=== PATIENT | male | born 1980 | race African-American/Black ===

== ENCOUNTER 2016-06-18 09:38 | Emergency (ER) | payer SELFPAY ==
[2016-06-18 09:59] VITALS: BP 151/89; PULSE 81; TEMP 98.2; BMI 29.0
--- NOTE | 2016-06-18 11:24 | PDOC ---
History of Present Illness - General Chief Complaint: Sore Throat Stated Complaint: THROAT PAIN Time Seen by Provider: 06/18/16 10:14 - History of Present Illness Initial Comments: 06/18/16 11:20 CHIEF COMPLAINT: HISTORY OF PRESENT ILLNESS: 36 yo M with no PMH presents to [facility] with sore throat x 2 days. Denies fever, chills, nausea, vomiting, diarrhea. Reports "I felt like I had the flu last week, I had a stuffy nose, and runny nose, and my body was tired." No recent travel or sick contacts. PAST MEDICAL HISTORY: Denies past medical history FAMILY HISTORY: Denies SOCIAL HISTORY: Denies tobacco, alcohol, illicit drug use. SURGICAL HISTORY: Denies ALLERGIES: No known drug allergies REVIEW OF SYSTEMS General/Constitutional: Denies fever or chills. Denies weakness, weight change. HEENT: Denies change in vision. Denies ear pain or discharge. Denies sore throat. Cardiovascular: Denies chest pain or shortness of breath. Respiratory: Denies cough, wheezing, or hemoptysis. Gastrointestinal: Denies nausea, vomiting, diarrhea or constipation. Denies rectal bleeding. Genitourinary: Denies dysuria, frequency, or change in urination. Musculoskeletal: Denies joint or muscle swelling or pain. Denies neck or back pain. Skin and breasts: Denies rash or easy bruising. PHYSICAL EXAM General Appearance: Well-appearing, appropriately dressed. No apparent distress , no intoxication. HEENT: Congestion, rhinorrhea, post nasal drip. No exudate or swelling to tonsils b/l. EOMI, PERRLA, normal voice, TMs normal, pharynx normal. No conjunctival pallor. No photophobia, scleral icterus. Respiratory/Chest: Lungs CTAB. Cardiovascular: RRR. S1, S2. Integumentary: Appropriate color, dry, warm. No cyanosis, erythema, jaundice or rash Neurologic: Fully oriented, alert. Appropriate mood/affect. Motor strength 5/ 5. No appreciable EOM palsy, facial droop or sensory deficit. Past History - Past Medical History Allergies/Adverse Reactions: Allergies Allergy/AdvReac Type Severity Reaction Status Date / Time Penicillins Allergy Verified 06/18/16 09:55 Home Medications: Ambulatory Orders Loratadine [Claritin] 10 mg PO DAILY #30 tablet 06/18/16 Pseudoephedrine HCl [Sudafed 12 Hour] 120 mg PO BID PRN #20 tablet.er 06/18/16 Cardiac Disorders: Yes (ANGINA,IRREGULAR HEART BEAT) - Psycho/Social/Smoking Cessation Hx Suicidal Ideation: No Smoking History: Current every day smoker Have you smoked in the past 12 months: Yes Number of Cigarettes Smoked Daily: 6 Information on smoking cessation initiated: No *Physical Exam - Vital Signs Last Vital Signs Temp Pulse Resp BP Pulse Ox 98.2 F 81 19 151/89 98 06/18/16 09:56 06/18/16 09:56 06/18/16 09:56 06/18/16 09:56 06/18/16 09:56 ED Treatment Course - ADDITIONAL ORDERS Additional order review: 06/18/16 10:48 Group A Strep Rapid Antigen - Final Throat *DC/Admit/Observation/Transfer Diagnosis at time of Disposition: Allergic rhinitis Qualifiers: Allergic rhinitis trigger: unspecified Allergic rhinitis seasonality: seasonal Qualified Code(s): J30.2 - Other seasonal allergic rhinitis - Discharge Dispostion Disposition: HOME Condition at time of disposition: Stable Admit: No - Prescriptions Prescriptions: Loratadine [Claritin] 10 mg PO DAILY #30 tablet Pseudoephedrine HCl [Sudafed 12 Hour] 120 mg PO BID PRN #20 tablet.er PRN Reason: congestion - Patient Instructions Printed Discharge Instructions: DI for Allergic Rhinitis Additional Instructions: Please take medications as prescribed. If symptoms persist past 1 week, please follow up with your primary care doctor. If you experience any fever, chills, nausea, vomiting, diarrhea, shortness of breath, chest pain, or any new or worsening symptoms, please return to the ER.
== END 2016-06-18 11:30 | disposition home or self-care (01) ==
LOC: JERFT 09:38
DX: J30.2 Other seasonal allergic rhinitis (principal); I20.9 Angina pectoris, unspecified
CPT/HCPCS: 87070; 87430; 99281-25

== ENCOUNTER 2017-04-03 08:29 | Emergency (ER) | payer SELFPAY ==
[2017-04-03 08:45] VITALS: BP 159/93; PULSE 89; TEMP 97.7; BMI 21.0
--- NOTE | 2017-04-03 09:15 | PDOC ---
History of Present Illness - General Chief Complaint: Chest Pain Stated Complaint: CHEST DISCOMFORT Time Seen by Provider: 04/03/17 09:13 Past History - Past Medical History Allergies/Adverse Reactions: Allergies Allergy/AdvReac Type Severity Reaction Status Date / Time Penicillins Allergy Verified 04/03/17 08:39 Home Medications: Ambulatory Orders Ibuprofen 800 mg PO TID #30 tablet 04/03/17 Cardiac Disorders: Yes (ANGINA,IRREGULAR HEART BEAT) COPD: No - Suicide/Smoking/Psychosocial Hx Smoking History: Current some day smoker Have you smoked in the past 12 months: Yes Number of Cigarettes Smoked Daily: 6 Information on smoking cessation initiated: No Drug/Substance Use Hx: Yes ([place]) Substance Use Type: Marijuana *Physical Exam - Vital Signs Last Vital Signs Temp Pulse Resp BP Pulse Ox 97.7 F 89 17 159/93 98 04/03/17 08:39 04/03/17 08:39 04/03/17 08:39 04/03/17 08:39 04/03/17 08:39 Medical Decision Making - Medical Decision Making 04/03/17 09:15 EKG from Triage: NRS, rate 86 BPM. Normal axis, normal intervals, no acute ST-T wave changes. Interpretation: Normal EKG *DC/Admit/Observation/Transfer Diagnosis at time of Disposition: Atypical chest pain - Discharge Dispostion Disposition: HOME Condition at time of disposition: Stable Admit: No - Referrals Referrals: Jerry Doherty MD [Staff Physician] - Beny Flores MD [Staff Physician] - - Patient Instructions Printed Discharge Instructions: DI for Atypical Chest Pain Additional Instructions: You came in for chest pain today. Your EKG was normal. Please take Motrin 800 mg every 8 hours as needed for pain. A prescription has been sent for you. You may use a heating pad to the area help relieve pain. Please follow-up with Dr. Doherty in one week. A referral has been provided to you. A cardiology referral has also been provided. Return to the emergency department if you have worsening pain, shortness of breath, difficulty breathing, palpitations, weakness, arm pain or any changes in your symptoms. - Post Discharge Activity Forms/Work/School Notes: Back to Work
[2017-04-03] MEDS ORDERED: IBUPROFEN 400 MG TABLET (FP) PO ONE ×2 (09:51→09:52)
--- NOTE | 2017-04-04 12:17 | EKG ---
Test Reason : Blood Pressure : / mmHG Vent. Rate : 086 BPM Atrial Rate : 086 BPM P-R Int : 142 ms QRS Dur : 088 ms QT Int : 358 ms P-R-T Axes : 073 059 040 degrees QTc Int : 428 ms NORMAL SINUS RHYTHM NORMAL ECG NO PREVIOUS ECGS AVAILABLE Confirmed by WAYNE ESPOSITO MD ([id number]) on 04/04/2017 12:16:42 PM Referred By: Confirmed By:WAYNE ESPOSITO MD
== END 2017-04-03 09:55 | disposition home or self-care (01) ==
LOC: JERFT 08:29
DX: R07.89 Other chest pain (principal); F17.210 Nicotine dependence, cigarettes, uncomplicated
CPT/HCPCS: 93005; 93010; 99281-25

== ENCOUNTER 2017-04-06 12:02 | Emergency (ER) | payer SELFPAY ==
[2017-04-06 12:49] VITALS: BP 153/101; PULSE 73; TEMP 98.3; BMI 28.8
--- NOTE | 2017-04-06 13:53 | PDOC ---
History of Present Illness <Princess Lomeli - Last Filed: 04/06/17 14:53> - General History Source: Patient <Jimi Rivas - Last Filed: 04/06/17 15:36> - General Chief Complaint: Chest Pain Stated Complaint: CHEST PAIN, SOB Time Seen by Provider: 04/06/17 12:58 - History of Present Illness Initial Comments: 04/06/17 13:47 37m with pmh of angina pectoris presents to the ED after week long sternal chest pain and sob on exertion. He states that he violently vomited last week after smoking marijuana and felt a pop in his chest. He has then been feeling pain and sob on and off on his sternum and upper abdomen exacerbated by palpation and movement. Was seen in [facility] and was sent home with motrin and cardio referral after normal ekg. 04/06/17 13:53 (Jimi Rivas) Past History <Princess Lomeli - Last Filed: 04/06/17 14:53> - Past Medical History Cardiac Disorders: Yes (ANGINA,IRREGULAR HEART BEAT) COPD: No - Suicide/Smoking/Psychosocial Hx Smoking History: Former smoker Have you smoked in the past 12 months: Yes Number of Cigarettes Smoked Daily: 5 If you are a former smoker, when did you quit?: t-3 Information on smoking cessation initiated: Yes 'Breaking Loose' booklet given: 04/06/17 Hx Alcohol Use: Yes (1-2 beers / day) Drug/Substance Use Hx: Yes ([place]) Substance Use Type: None <Jimi Rivas - Last Filed: 04/06/17 15:36> - Past Medical History Allergies/Adverse Reactions: Allergies Allergy/AdvReac Type Severity Reaction Status Date / Time Penicillins Allergy Verified 04/03/17 08:39 Home Medications: Ambulatory Orders Ibuprofen 800 mg PO TID #30 tablet 04/03/17 Aspirin [ASA -] 81 mg PO DAILY 04/06/17 Review of Systems - Review of Systems Constitutional: No: Symptoms Reported HEENTM: No: Symptoms Reported Respiratory: Yes: See HPI Cardiac (ROS): Yes: See HPI ABD/GI: No: Symptoms Reported : No: Symptoms Reported Musculoskeletal: No: Symptoms Reported Integumentary: No: Symptoms Reported Neurological: No: Symptoms reported All Other Systems: Reviewed and Negative <Jimi Rivas - Last Filed: 04/06/17 15:36> *Physical Exam - Physical Exam General Appearance: Yes: Nourished, Appropriately Dressed. No: Apparent Distress HEENT: positive: EOMI, TODD, Normal ENT Inspection Neck: negative: Tender Respiratory/Chest: positive: Chest Tender, Lungs Clear, Normal Breath Sounds Cardiovascular: positive: Regular Rhythm, Regular Rate, S1, S2 Gastrointestinal/Abdominal: positive: Normal Bowel Sounds, Tender (upper abdomen ), Flat, Soft <Jimi Rivas - Last Filed: 04/06/17 15:36> - Vital Signs Last Vital Signs Temp Pulse Resp BP Pulse Ox 98.3 F 73 20 153/101 99 04/06/17 12:46 04/06/17 12:46 04/06/17 12:46 04/06/17 12:46 04/06/17 13:25 - RADIOLOGY Radiology Studies Ordered: Category Date Time Status CHEST PA & LAT [RAD] Stat Radiology 04/06/17 13:21 Completed Medical Decision Making <Princess Lomeli - Last Filed: 04/06/17 14:53> <Jimi Rivas - Last Filed: 04/06/17 15:36> - Medical Decision Making 04/06/17 14:17 chest xray to r/o spontaneous hemothorax. 04/06/17 15:35 R/o negative. Patient d/c with motrin prescription (Jimi Rivas) *DC/Admit/Observation/Transfer - Discharge Dispostion Admit: No <Princess Lomeli - Last Filed: 04/06/17 14:53> <Jimi Rivas - Last Filed: 04/06/17 15:36> Diagnosis at time of Disposition: Cough, Atypical chest pain - Discharge Dispostion Disposition: HOME Condition at time of disposition: Stable - Referrals Referrals: Jerry Doherty MD [Staff Physician] - - Patient Instructions Printed Discharge Instructions: DI for Cough -- Adult, DI for Atypical Chest Pain - Post Discharge Activity Forms/Work/School Notes: Back to Work
--- NOTE | 2017-04-06 14:11 | PDOC ---
Attending Attestation - HPI HPI: 04/06/17 15:30 The patient is a 37 year old male with a significant PMH of angina pectoris who presents to the emergency department with sternal chest pain and shortness of breath on exertion that began approximately 1 week ago. The patient reports he vomited last week after smoking marijuana and felt a popping sound in his chest. The patient states the sternal chest pain is worsened by movement. The patient denies headache and dizziness. Denies fever, chills, nausea, vomit, diarrhea and constipation. Denies dysuria, frequency, urgency and hematuria. Allergies: NKA Past surgical history: None reported. Social history: Marijuana use. No reported alcohol or cigarette use. <Kathia Gonzales - Last Filed: 04/06/17 15:30> - Resident Resident Name: Jimi Rivas - ED Attending Attestation I have performed the following: I have examined & evaluated the patient, The case was reviewed & discussed with the resident, I agree w/resident's findings & plan, Exceptions are as noted - Physicial Exam PE: GENERAL: Awake, alert, and fully oriented, in no acute distress HEAD: No signs of trauma EYES: PERRLA, EOMI, sclera anicteric, conjunctiva clear ENT: Auricles normal inspection, hearing grossly normal, nares patent, oropharynx clear without exudates. Moist mucosa NECK: Normal ROM, supple, no lymphadenopathy, JVD, or masses LUNGS: Breath sounds equal, clear to auscultation bilaterally. No wheezes, and no crackles. No crepitus. HEART: Regular rate and rhythm, normal S1 and S2, no murmurs, rubs or gallops ABDOMEN: Soft, nontender, normoactive bowel sounds. No guarding, no rebound. No masses EXTREMITIES: Normal range of motion, no edema. No clubbing or cyanosis. No cords, erythema, or tenderness NEUROLOGICAL: Cranial nerves II through XII grossly intact. Normal speech, normal gait SKIN: Warm, Dry, normal turgor, no rashes or lesions noted. - Medical Decision Making CXR no ptx. Patient states his pain resolves with NSAIDs. Low suspicion for ptx , pneumomediastinum. <Princess Lomeli - Last Filed: 04/07/17 11:14>
--- NOTE | 2017-04-08 17:11 | EKG ---
Test Reason : Blood Pressure : / mmHG Vent. Rate : 087 BPM Atrial Rate : 087 BPM P-R Int : 140 ms QRS Dur : 088 ms QT Int : 360 ms P-R-T Axes : 074 067 056 degrees QTc Int : 433 ms NORMAL SINUS RHYTHM NORMAL ECG WHEN COMPARED WITH ECG OF 03-APR-2017 08:38, NO SIGNIFICANT CHANGE WAS FOUND Confirmed by SIDNEY RUIZ MD ([id number]) on 04/08/2017 5:11:17 PM Referred By: Confirmed By:SIDNEY RUIZ MD
== END 2017-04-06 14:59 | disposition home or self-care (01) ==
LOC: JER 12:02
DX: R07.89 Other chest pain (principal); R06.02 Shortness of breath; Z87.891 Personal history of nicotine dependence; F12.10 Cannabis abuse, uncomplicated
CPT/HCPCS: 71046-TC-FY; 93005; 93010; 99283-25

== ENCOUNTER 2017-10-22 09:30 | Emergency (ER) | payer OTHER ==
[2017-10-22 09:37] VITALS: BP 133/86; PULSE 68; TEMP 98; BMI 29.6
--- NOTE | 2017-10-22 10:33 | PDOC ---
Suture Removal/Wound Check HPI - History of Present Illness Chief Complaint: Suture/Staple Removal(Here) Stated Complaint: SUTURE/STAPLE REMOVAL Time Seen by Provider: 10/22/17 10:31 History Source: Yes: Patient Exam Limitations: Yes: No Limitations Treated at: [facility] Date of Last ED visit: 10/12/17 - Previous ED Treatment Type of procedure performed on last visit: Yes: Laceration Repair Tetanus Immunization: Yes: Up to Date Past History - Past Medical History Allergies/Adverse Reactions: Allergies Allergy/AdvReac Type Severity Reaction Status Date / Time Penicillins Allergy Verified 10/22/17 09:34 Home Medications: Ambulatory Orders Aspirin [ASA -] 81 mg PO DAILY 04/06/17 Cardiac Disorders: Yes (ANGINA,IRREGULAR HEART BEAT) COPD: No - Suicide/Smoking/Psychosocial Hx Smoking History: Never smoked Have you smoked in the past 12 months: No Number of Cigarettes Smoked Daily: 5 If you are a former smoker, when did you quit?: t-3 'Breaking Loose' booklet given: 04/06/17 Hx Alcohol Use: No Drug/Substance Use Hx: No Substance Use Type: None *Physical Exam - Vital Signs Last Vital Signs Temp Pulse Resp BP Pulse Ox 98 F 68 16 133/86 98 10/22/17 09:36 10/22/17 09:36 10/22/17 09:36 10/22/17 09:36 10/22/17 09:36 Medical Decision Making - Medical Decision Making A/P: 4 sutures removed from right thumb lac repair. No wound dehiscence. Patient denies fever, streaking, pain, decreased ROM. WIll discharge to home. *DC/Admit/Observation/Transfer Diagnosis at time of Disposition: Visit for suture removal - Discharge Dispostion Disposition: HOME Condition at time of disposition: Improved - Referrals Referrals: lAbert José [Primary Care Provider] - - Patient Instructions Printed Discharge Instructions: DI for Suture Removal - Post Discharge Activity
== END 2017-10-22 10:54 | disposition home or self-care (01) ==
LOC: JERFT 09:30
DX: Z48.817 Encounter for surgical aftercare following surgery on the skin and subcutaneous tissue (principal); Z48.02 Encounter for removal of sutures
CPT/HCPCS: 99281-25

== ENCOUNTER 2017-11-22 05:39 | Emergency (ER) | payer OTHER ==
[2017-11-22 06:13] VITALS: BMI 30.5
--- NOTE | 2017-11-22 07:26 | PDOC ---
History of Present Illness - General Chief Complaint: Toothache Stated Complaint: TOOTHACHE Time Seen by Provider: 11/22/17 07:04 - History of Present Illness Initial Comments: 37 YO M is here with tooth pain s/p tooth extraction from a dentist at [facility] last week on Thursday. He states that he believes the place he had his tooth extracted from is now infected. He denies having any fevers, chills or infections. His pain has increased every day since the extraction. The pain radiates through his right jaw and up to the left ear. Denies throat pain, SOB, difficulty breathing. Tooth number 31 extracted. PCP: None social hx: recreational alcohol, 1 PPD of cigarettes, denies illicit drug usage Allergies: Penicillin. Past History - Past Medical History Allergies/Adverse Reactions: Allergies Allergy/AdvReac Type Severity Reaction Status Date / Time Penicillins Allergy Verified 11/22/17 06:52 Home Medications: Ambulatory Orders Aspirin [ASA -] 81 mg PO DAILY 04/06/17 Acetaminophen 500 mg PO BID #30 tablet 11/22/17 Clindamycin [Cleocin -] 450 mg PO TID 10 Days #30 capsule 11/22/17 Ibuprofen 600 mg PO TID #60 tablet 11/22/17 Oxycodone HCl 10 mg PO QID PRN #12 tablet MDD 4 11/22/17 Cardiac Disorders: Yes (ANGINA,IRREGULAR HEART BEAT) COPD: No CHF: No - Suicide/Smoking/Psychosocial Hx Smoking History: Current every day smoker Have you smoked in the past 12 months: Yes Number of Cigarettes Smoked Daily: 5 If you are a former smoker, when did you quit?: t-3 Information on smoking cessation initiated: No 'Breaking Loose' booklet given: 04/06/17 Hx Alcohol Use: No Drug/Substance Use Hx: No Substance Use Type: None Review of Systems - Review of Systems Able to Perform ROS?: Yes Is the patient limited [place]an proficient: No Constitutional: No: Symptoms Reported, See HPI, Chills, Diaphoresis, Fever, Loss of Appetite, Malaise, Night Sweats, Weakness, Weight Stable, Unintentional Wgt. Loss, Unexplained wgt Loss, Other HEENTM: Yes: Ear Pain, Mouth Pain, Dental Problems. No: Eye Pain, Blurred Vision, Tearing, Recent change in vision, Double Vision, Cataracts, Ocular Prothesis, Ear Discharge, Nose Pain, Nose Congestion, Tinnitus, Nose Bleeding, Hearing Loss, Throat Pain, Throat Swelling, Difficulty Swallowing, Mouth Swelling, Other Respiratory: No: Symptoms reported, See HPI, Cough, Orthopnea, Shortness of Breath, SOB with Exertion, SOB at Rest, Stridor, Wheezing, Productive cough, Hemoptysis, Other Cardiac (ROS): No: Symptoms Reported, See HPI, Chest Pain, Edema, Irregular Heart Rate, Lightheadedness, Palpitations, Syncope, Chest Tightness, Other ABD/GI: No: Symptoms Reported, See HPI, Abdominal Distended, Abd. Pain w/ defecation, Blood Streaked Bowels, Constipated, Diarrhea, Difficulty Swallowing , Nausea, Poor Appetite, Poor Fluid Intake, Rectal Bleeding, Vomiting, Indigestion, Abdominal cramping, Tarry Stools, Other : No: Symptoms Reported, See HPI, Burning, Dysuria, Discharge, Frequency, Flank Pain, Hematuria, Incontinence, Pain, Urgency, Testicular Mass, Testicular Swelling, Lesions, Testicular Pain, Other Musculoskeletal: No: Symptoms Reported, See HPI, Back Pain, Gout, Joint Pain, Joint Swelling, Muscle Pain, Muscle Weakness, Neck Pain, Joint Stiffness, Other Integumentary: No: Symptoms Reported, See HPI, Bruising, Change in Color, Change in Hair/Nails, Dryness, Erythema, Flushing, Lesions, Lumps, Pallor, Pruritus, Rash, Sweating, Other Neurological: No: Symptoms reported, See HPI, Headache, Numbness, Paresthesia, Pre-Existing Deficit, Seizure, Tingling, Tremors, Weakness, Unsteady Gait, Ataxia, Dizziness, Other Psychiatric: No: Anxiety, Depression, Frequent Crying, Stressors, Sleep Pattern Change, Emotional Problems, Mood Swings, Change in Appetite, Other Endocrine: No: Symptoms Reported, See HPI, Excessive Sweating, Flushing, Intolerance to Cold, Intolerance to Heat, Increased Hunger, Increased Thirst, Increased Urine, Unexplained Weight Gain, Unexplained Weight Loss, Change in Weight, Other Hematologic/Lymphatic: No: Symptoms Reported, See HPI, Anemia, Blood Clots, Easy Bleeding, Easy Bruising, Bleeding Diathesis, Lymph Node Abnormalities, Swollen Glands, Other *Physical Exam - Vital Signs Last Vital Signs Temp Pulse Resp BP Pulse Ox 98.1 F 70 20 177/98 H 98 11/22/17 06:11 11/22/17 06:11 11/22/17 06:11 11/22/17 06:11 11/22/17 06:11 - Physical Exam General Appearance: Yes: Nourished, Appropriately Dressed, Apparent Distress HEENT: positive: EOMI, TODD, Normal Voice, Pharynx Normal, Pale Conjunctivae, Other (The 31st tooth is missing. There is some white pus in the area the tooth was in. The tooth area is painful to touch. ). negative: Scleral Icterus (R), Scleral Icterus (L), Pharyngeal Erythema, Tonsillar Exudate Neck: positive: Trachea midline, Supple. negative: Lymphadenopathy (R), Lymphadenopathy (L) Respiratory/Chest: positive: Lungs Clear, Normal Breath Sounds. negative: Respiratory Distress Cardiovascular: positive: Regular Rhythm, Regular Rate, S1, S2 Vascular Pulses: Dorsalis-Pedis (R): 2+, Doralis-Pedis (L): 2+ Gastrointestinal/Abdominal: positive: Normal Bowel Sounds, Soft. negative: Distended, Guarding, Rebound, Hepatomegaly Lymphatic: negative: Adenopathy Musculoskeletal: positive: Normal Inspection. negative: CVA Tenderness Extremity: positive: Normal Capillary Refill, Normal Inspection, Normal Range of Motion Integumentary: positive: Normal Color, Dry, Warm Neurologic: positive: television mechanic II-XII NML intact, Fully Oriented, Alert, Normal Mood/ Affect, Normal Response Medical Decision Making - Medical Decision Making 37 YO M is here with tooth pain s/p tooth extraction from a dentist at [facility] last week on Thursday. There does not appear to be an abscess. Plan: Abx, analgesia. Patient does not wish for a nerve block so giving oral analgesia. Patient is allergic to penicillin so giving him a 10 day course of clindamycin. Will DC with prescription for clindamycin, motrin, acetaminophen, oxycodone. Giving patient referalls for FU. *DC/Admit/Observation/Transfer Diagnosis at time of Disposition: Toothache - Discharge Dispostion Disposition: HOME Condition at time of disposition: Improved Decision to Admit order: No - Prescriptions Prescriptions: Acetaminophen 500 mg PO BID #30 tablet Clindamycin [Cleocin -] 450 mg PO TID 10 Days #30 capsule Ibuprofen 600 mg PO TID #60 tablet - Referrals Referrals: Ryder Nunez DDS [Staff Physician] - Rafy Perez MD [Other Staff,non-medical] - Cesar Cm MD [Non Staff, Medical] - Jerry Doherty MD [Staff Physician] - - Patient Instructions Printed Discharge Instructions: DI for Tooth Abscess, DI for Dental Pain Additional Instructions: You came to the ER with tooth pain as a result of when you had your tooth taken out recently. We are giving you antibiotics and pain medications for you to take for the tooth pain. All the medications are being sent to your [facility] pharmacy. Antibiotic: Clindamycin Make sure to take 450 mg every 8 hours for the next 10 days. Best to take this with food. Pain medications: We are sending you 3 different types of pain medications. DO NOT TAKE MORE THAN 1 PAIN MEDICATION EVERY 6 HOURS. 1) Ibuprofen: Take 600 mg as needed for pain not more than every 6 hours 2) Tylenol: Take 500 mg as needed for pain not more than every 6 hours 3) Oxycodone: IT IS VERY IMPORTANT THAT YOU DO NOT DRIVE AFTER TAKING THIS MEDICATION. It is very strong and makes you very drowsy. DO NOT TAKE BEFORE OPERATING A MOTOR VEHICLE. It is best to avoid taking this med unless absolutely necessary. It is better to take the first two pain medications ( Ibuprofen and tylenol) Make sure to schedule a follow up appointment with one of the doctors we are referring you to, to make sure your pain is going away and you are getting better. Come back to the ER if you develop severe pain that you can't control, if the pain worsens, you develop a bad fever, or have any other new or worsening concerns. Print Language: URDU - Post Discharge Activity
[2017-11-22] MEDS ORDERED: CLINDAMYCIN HCL 150 MG CAPSULE (FP) PO ONE (07:30)
[2017-11-22] MEDS ORDERED: BUPIVACAINE HCL/PF (5 MG/ML) 30 ML VIAL IJ ONE (07:30)
[2017-11-22] MEDS ORDERED: CLINDAMYCIN HCL 150 MG CAPSULE (FP) ONE (07:36)
[2017-11-22] MEDS ORDERED: BUPIVACAINE HCL/PF 0.5% (5MG/ML) 10 ML VIAL ONE (07:36)
[2017-11-22] MEDS ORDERED: IBUPROFEN 600 MG TABLET (FP) PO ONE ×2 (07:49→08:51)
--- NOTE | 2017-11-22 08:15 | PDOC ---
Attending Attestation - Resident Resident Name: David Santana - ED Attending Attestation I have performed the following: I have examined & evaluated the patient, The case was reviewed & discussed with the resident, I agree w/resident's findings & plan - HPI HPI: 11/22/17 08:13 37 YO M is here with right lower molar tooth pain s/p tooth extraction from a dentist at [facility]. no fever or chills, +white material in the pocket. able to edwar secretions and fluids. - Physicial Exam PE: 11/22/17 14:03 NAD, well appearing. dentition poor. right tooth #31 absent, with white material in pocket s/p extraction, mild bleeding. gum and area TTP. TMJ stable, oropharynx clear, normal phonation. speaking full sentences. neck supple, CN II- XII intact grossly - Medical Decision Making 11/22/17 08:13 37 YO M is here with right lower molar tooth pain s/p tooth extraction from a dentist at [facility]. no fever or chills, +white material in the pocket. able to edwar secretions and fluids. exam with white dried purulence in right tooth #31. mild bleeding, tender in gum line declined lido block to inf alveolar. instructions on alternating Motrin/tylenol PRN pain severe pain oxycodone PRN, instructions on not driving or operating machinery while taking narc. however, unable to rx via system, called patient who can followup nonemergently with primary doctor (referrals given) or dentist at [facility] for rx. clindamycin x 10 day course for possible infection post extraction topical lidocaine swish and spit. f/u dentist at [facility]. referrals for PMD given return precautions discussed. 11/22/17 10:52
[2017-11-22 09:02] VITALS: BP 165/95; PULSE 65; TEMP 98.7
== END 2017-11-22 09:01 | disposition home or self-care (01) ==
LOC: JER 05:39
DX: K08.89 Other specified disorders of teeth and supporting structures (principal); K08.109 Complete loss of teeth, unspecified cause, unspecified class; Z86.79 Personal history of other diseases of the circulatory system
CPT/HCPCS: 99282-25

== ENCOUNTER 2018-02-20 08:20 | Emergency (ER) | payer SELFPAY ==
[2018-02-20 08:31] VITALS: TEMP 97.9; BMI 29.0
--- NOTE | 2018-02-20 09:33 | PDOC ---
History of Present Illness - General Chief Complaint: Lightheaded Stated Complaint: CHEST PAIN Time Seen by Provider: 02/20/18 08:38 History Source: Patient Exam Limitations: No Limitations - History of Present Illness Initial Comments: 02/20/18 09:26 Patient is a 38 year old male with no significant PMHx who presents here for chest wall tenderness that started three days ago. 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 Patient states he's been here before for similar pain and was given Motrin with relief of symptoms. Patient otherwise denies any chest pain, palpitations, shortness of breath, acute vision changes, headaches, loss of consciousness, diaphoresis. PMHx: Denies PSHx: Denies Social Hx: Quit smoking three days ago after 22 years Denies alcohol use Uses Marijuana Family Hx: Denies any significant cardiac history Past History - Past Medical History Allergies/Adverse Reactions: Allergies Allergy/AdvReac Type Severity Reaction Status Date / Time Penicillins Allergy Verified 02/20/18 08:23 Home Medications: Ambulatory Orders Aspirin [ASA -] 81 mg PO DAILY 04/06/17 Acetaminophen 500 mg PO BID #30 tablet 11/22/17 Clindamycin [Cleocin -] 150 mg PO Q8H 10 Days #90 capsule 11/22/17 Ibuprofen 600 mg PO TID #30 tablet 11/22/17 Oxycodone HCl 10 mg PO QID PRN #12 tablet MDD 4 11/22/17 Cardiac Disorders: Yes (ANGINA,IRREGULAR HEART BEAT) COPD: No CHF: No - Immunization History Immunization Up to Date: No - Suicide/Smoking/Psychosocial Hx Smoking History: Former smoker Have you smoked in the past 12 months: Yes Number of Cigarettes Smoked Daily: 5 If you are a former smoker, when did you quit?: 02/17/2018 Information on smoking cessation initiated: No 'Breaking Loose' booklet given: 04/06/17 Hx Alcohol Use: No Drug/Substance Use Hx: No Substance Use Type: None Review of Systems - Review of Systems Constitutional: No: Chills, Diaphoresis, Fever HEENTM: No: Eye Pain, Blurred Vision Respiratory: No: Cough, Orthopnea, Shortness of Breath, SOB with Exertion, SOB at Rest Cardiac (ROS): Yes: Other (Midsternal tenderness ). No: Chest Pain, Lightheadedness, Palpitations, Chest Tightness ABD/GI: No: Abdominal Distended, Difficulty Swallowing, Nausea, Poor Appetite, Vomiting, Indigestion : No: Burning, Dysuria, Discharge, Frequency, Flank Pain, Hematuria Musculoskeletal: No: Back Pain, Muscle Pain, Muscle Weakness Integumentary: No: Bruising, Dryness, Erythema, Flushing Neurological: No: Headache, Numbness, Seizure, Tingling, Tremors, Dizziness *Physical Exam - Vital Signs Last Vital Signs Temp Pulse Resp BP Pulse Ox 97.9 F 70 18 133/70 97 02/20/18 08:24 02/20/18 11:47 02/20/18 11:47 02/20/18 11:47 02/20/18 11:47 - Physical Exam General Appearance: Yes: Other (Awake, Alert, oriented x3, no acute distress ) HEENT: positive: EOMI, TODD, Normal ENT Inspection, Normal Voice, Symmetrical, TMs Normal, Pharynx Normal. negative: Tonsillar Exudate, Tonsillar Erythema, Rhinorrhea, Sinus Tenderness Neck: positive: Supple. negative: Carotid bruit, Decreased range of motion, Lymphadenopathy (R), Lymphadenopathy (L) Respiratory/Chest: positive: Chest Tender, Lungs Clear, Normal Breath Sounds. negative: Respiratory Distress, Accessory Muscle Use, Labored Respiration, Decreased Breath Sounds, Crackles, Rales, Rhonchi, Wheezing Cardiovascular: positive: Regular Rhythm, Regular Rate, S1, S2. negative: Edema , JVD, Murmur Gastrointestinal/Abdominal: positive: Other (Soft, nontender, nondistended, normoactive bowel sounds, no organomegaly ) Musculoskeletal: positive: Normal Inspection. negative: CVA Tenderness, CVA Tenderness (R), CVA Tenderness (L), Decreased Range of Motion, Muscle Spasm Extremity: positive: Normal Capillary Refill, Normal Inspection, Normal Range of Motion. negative: Swelling, Calf Tenderness, Erythema Integumentary: positive: Normal Color, Dry, Warm. negative: Erythema, Jaundice Neurologic: positive: bar manager II-XII NML intact, Fully Oriented, Alert, Normal Mood/ Affect, Normal Response, Motor Strength 5/5 Moderate Sedation - Procedure Monitoring Vital Signs: Procedure Monitoring Vital Signs Temperature 97.9 F 02/20/18 08:24 Pulse Rate 70 02/20/18 11:47 Respiratory Rate 18 02/20/18 11:47 Blood Pressure 133/70 02/20/18 11:47 O2 Sat by Pulse Oximetry (%) 97 02/20/18 11:47 ED Treatment Course - LABORATORY CBC & Chemistry Diagram: 02/20/18 09:34 02/20/18 09:34 - ADDITIONAL ORDERS Additional order review: Laboratory Results 02/20/18 09:34 Sodium 137 Potassium 4.0 Chloride 103 Carbon Dioxide 25 Anion Gap 9 BUN 17 Creatinine 1.0 Creat Clearance w eGFR > 60 Random Glucose 101 Calcium 8.7 Total Bilirubin 0.6 AST 29 ALT 32 Alkaline Phosphatase 105 Creatine Kinase 752 H Creatine Kinase Index 0.4 CK-MB (CK-2) 3.5 Troponin I < 0.02 Total Protein 7.3 Albumin 3.8 02/20/18 09:34 RBC 5.09 MCV 91.8 MCHC 35.1 RDW 13.1 MPV 10.0 Neutrophils % 41.7 L Lymphocytes % 45.7 H Monocytes % 10.0 Eosinophils % 1.9 Basophils % 0.7 - RADIOLOGY Radiology Studies Ordered: Category Date Time Status CHEST X-RAY PORTABLE* [RAD] Stat Radiology 02/20/18 09:25 Completed - Medications Given in the ED: ED Medications Discontinued Medications Generic Name Dose Route Start Last Admin Trade Name Arunq PRN Reason Stop Dose Admin Ibuprofen 600 mg 02/20/18 09:56 02/20/18 10:31 Motrin - PO 02/20/18 09:57 600 mg ONCE ONE Administration Medical Decision Making - Medical Decision Making 02/20/18 09:55 Patient is a 38 year old male who presented for chest wall tenderness two days after lifting a heavy object. Patient reports similar symptoms in the past. DDx includes but not limited to ACS, Costochondritis, Pericarditis. -CBC, CMP, CARDIAC PROFILE -CXR and EKG -Will give Motrin 600mg 02/20/18 10:19 -CXR revealed no acute pathology and no leukocytosis on CBC 02/20/18 11:16 -Patient reports relief of symptoms with labs unremarkable. Encouraged patient to stay hydrated -Will discharge home *DC/Admit/Observation/Transfer Diagnosis at time of Disposition: Chest pain Qualifiers: Chest pain type: unspecified Qualified Code(s): R07.9 - Chest pain, unspecified - Discharge Dispostion Disposition: HOME Condition at time of disposition: Stable Decision to Admit order: No - Referrals Referrals: Albert José [Primary Care Provider] - - Patient Instructions Additional Instructions: -You were seen here for chest tenderness likely after lifting a heavy object. Your labs for your heart came back normal. -You had high blood pressure here and recommend you keep a log of your blood pressure and follow up with your primacy care physician. -You may take over the counter NSAID's such as Motrin, Advil, Aleve for your chest tenderness. -Please stay hydrated and drink plenty of water. -If your symptoms worsen, please return to the emergency department immediately. - Post Discharge Activity
[2018-02-20] MEDS ORDERED: IBUPROFEN 600 MG TABLET (FP) PO ONE ×2 (09:56→10:30)
[2018-02-20 10:09] LABS: BASO % 0.7 % (0-2.0); EOS % 1.9 % (0-4.5); HEMATOCRIT 46.7 % (35.4-49); HEMOGLOBIN 16.4 GM/dL (11.7-16.9); LYMPH % 45.7 % (8-40); MCH 32.2 pg (25.7-33.7); MCHC 35.1 g/dl (32.0-35.9); MEAN CELL VOLUME 91.8 fl (80-96); NEUT % 41.7 % (42.8-82.8); PLATELET COUNT 285 K/MM3 (134-434); RBC 5.09 M/mm3 (4.00-5.60); RDW 13.1 % (11.9-15.9); WHITE BLOOD COUNT 9.3 K/mm3 (4.0-10.0)
--- NOTE | 2018-02-20 10:23 | PDOC ---
Attending Attestation - Resident Resident Name: Laureen Urenaeen - ED Attending Attestation I have performed the following: I have examined & evaluated the patient, The case was reviewed & discussed with the resident, I agree w/resident's findings & plan, Exceptions are as noted - HPI HPI: 02/20/18 09:23 38 yo M presenting to the ER with a complaint of chest tenderness Since that he has had chest wall tenderness He had had this in the past and it improved with motrin Pt has had constant pain in the chest wall for the past 2 -3 days This is reproducible with palpation No shortness of breath No nausea No weakness - Physicial Exam PE: 02/20/18 10:23 GENERAL: The patient is in no acute distress. EYES: PERRLA, EOMI, sclera anicteric, conjunctiva clear. ENT: Ears normal, nares patent, oropharynx clear without exudates. Moist mucous membranes. NECK: Normal range of motion, supple without JVD LUNGS: Breath sounds equal, clear to auscultation bilaterally. No wheezes, and no crackles. HEART:Regular rate and rhythm, normal S1 and S2 without murmur, rub or gallop. ABDOMEN: Soft, nontender, normoactive bowel sounds. No guarding, no rebound. No masses palpable. EXTREMITIES: Normal range of motion, no edema. NEUROLOGICAL: Cranial nerves II through XII grossly intact. Normal speech. No focal neurological deficits. MUSCULOSKELETAL: (+) chest wall tenderness SKIN: Warm, Dry, normal turgor, no rashes or lesions noted. - Medical Decision Making 02/20/18 10:26 Laboratory Tests 02/20/18 09:34 WBC 9.3 Hgb 16.4 Hct 46.7 Plt Count 285 Laboratory Tests 02/20/18 09:34 BUN 17 Creatinine 1.0 Creatine Kinase 752 H Creatine Kinase Index 0.4 CK-MB (CK-2) 3.5 Troponin I < 0.02 CXR no acute pathology Motrin given for chest pain 02/20/18 11:44 likely musculoskeletal pain
[2018-02-20 10:53] LABS: ALBUMIN 3.8 g/dl (3.4-5.0); ALK PHOS 105 U/L (45-117); ANION GAP 9 MMOL/L (8-16); BILIRUBIN,TOTAL 0.6 mg/dL (0.2-1); BLOOD UREA NITROGEN 17 mg/dL (7-18); CALCIUM 8.7 mg/dL (8.5-10.1); CHLORIDE 103 mmol/L (98-107); CO2 25 mmol/L (21-32); GLUCOSE,RANDOM 101 mg/dL (74-106); SGOT/AST 29 U/L (15-37); SGPT/ALT 32 U/L (13-61); SODIUM 137 mmol/L (136-145); TOT PROT 7.3 g/dl (6.4-8.2)
[2018-02-20 11:48] VITALS: BP 133/70; PULSE 70
--- NOTE | 2018-02-20 12:38 | EKG ---
Test Reason : Blood Pressure : / mmHG Vent. Rate : 079 BPM Atrial Rate : 079 BPM P-R Int : 144 ms QRS Dur : 086 ms QT Int : 378 ms P-R-T Axes : 068 057 037 degrees QTc Int : 433 ms POOR DATA QUALITY, INTERPRETATION MAY BE ADVERSELY AFFECTED NORMAL SINUS RHYTHM NORMAL ECG WHEN COMPARED WITH ECG OF 06-APR-2017 12:09, NO SIGNIFICANT CHANGE WAS FOUND Confirmed by MD MARILUZ, SHAY ([id number]) on 02/20/2018 12:37:39 PM Referred By: Confirmed By:SHAY MCGRAW MD
== END 2018-02-20 11:53 | disposition home or self-care (01) ==
LOC: JER 08:20
DX: R07.89 Other chest pain (principal); I25.119 Atherosclerotic heart disease of native coronary artery with unspecified angina pectoris; Z86.79 Personal history of other diseases of the circulatory system
CPT/HCPCS: 36415; 71045-TC-FY; 80053; 82550; 82553; 84484; 85025; 93005; 93010; 99282-25

== ENCOUNTER 2018-09-10 03:28 | Emergency (ER) | payer SELFPAY | END 2018-09-10 05:38 | disposition home or self-care (01) | LOC: JER 03:28 ==

== ENCOUNTER 2019-11-20 11:42 | Emergency (ER) | payer SELFPAY ==
[2019-11-20 11:47] VITALS: BP 119/52; PULSE 82; TEMP 97; BMI 29.2
--- OUTSIDE RECORDS SUMMARY | 2019-11-20 12:11 | XMS ---
:1980 Author Organization [facility] Care Team Providers Name Role Phone Black, Renea Unavailable Unavailable Black, Renea Unavailable Unavailable Black, Renea Unavailable Unavailable Black, Renea Unavailable Unavailable Black, Renea Unavailable Unavailable Black, Renea Unavailable Unavailable Black, Renea Unavailable Unavailable Black, Renea Unavailable Unavailable Black, Renea Unavailable Unavailable Black, Renea Unavailable Unavailable Aszalos, Radha Zamzam Unavailable Unavailable Aszalos, Zamzam Unavailable Unavailable Aszalos, Zamzam Unavailable Unavailable Aszalos, Zamzam Unavailable Unavailable Aszalos, Zamzam Unavailable Unavailable Aszalos, Zamzam Unavailable Unavailable Aszalos, Zamzam Unavailable Unavailable Aszalos, Zamzam Unavailable Unavailable Aszalos, Zamzam Unavailable Unavailable Shruthi Unavailable [phone] Shruthi Unavailable [phone] Nlam Unavailable [phone] Nlam Unavailable [phone] Andressa Unavailable Unavailable Andressa Unavailable Unavailable Andressa Unavailable Unavailable Andressa Unavailable Unavailable Re-disclosure Warning The records that you are about to access may contain information from federally- assisted alcohol or drug abuse programs. If such information is present, then the following federally mandated warning applies: This information has been disclosed to you from records protected by federal confidentiality rules (42 CFR part 2). The federal rules prohibit you from making any further disclosure of this information unless further disclosure is expressly permitted by the written consent of the person to whom it pertains or as otherwise permitted by 42 CFR part 2. A general authorization for the release of medical or other information is NOT sufficient for this purpose. The Federal rules restrict any use of the information to criminally investigate or prosecute any alcohol or drug abuse patient.The records that you are about to access may contain highly sensitive health information, the redisclosure of which is protected by Article 27-F of the [facility] Public Health law. If you continue you may haveaccess to information: Regarding HIV / AIDS; Provided by facilities licensed or operated by the [facility] Office of Mental Health; or Provided by the [facility] Office for People With Developmental Disabilities. If such information is present, then the following [facility] mandated warning applies: This information has been disclosed to you from confidential records which are protected by state law. State law prohibits you from making any further disclosure of this information without the specific written consent of the person to whom it pertains, or as otherwise permitted by law. Any unauthorized further disclosure in violation of state law may result in a fine or chcf sentence or both. A general authorization for the release of medical or other information is NOT sufficient authorization for further disclosure. Allergies and Adverse Reactions Type Description Substance Reaction Status Data Source(s ) propensity to Penicillin Penicillins Weal NEXTGEN (S aint adverse reactions (substance) [facility] Medical to drug Center) Family History Family Member Family Member Family Member Date of Description Data Source(s) Name Gender Status Status Unknown Female Diagnosis 06/17/2018 NEXTGEN ([facility] 12:[facility]:00 [facility]) Unknown Female Diagnosis 06/17/2018 NEXTGEN ([facility] 12:00:00 AM [facility]) Unknown Female Diagnosis 06/17/2018 NEXTGEN ([facility] 12:00:00 AM [facility] EDT Center) Encounters Encounter Providers Location Date Indications Data Source(s ) Attender: [facility] 10/16/2018 NEXTGEN ([facility] 09:23:00 AM [facility] EDT - Center) 10/16/2018 09:23:00 AM EDT Emergency H 10/14/2018 [facility] 02:48:00 PM Medical Cente r EDT - 10/14/2018 08:45:00 PM EDT Patient discharged. Attender: [facility] 06/28/2018 NEXTGE N ([facility] 07:08:00 PM EDT - [facility] 06/28/2018 Center) 07:08:00 PM EDT Outpatient 06/26/2018 [facility] 01:25:00 PM EDT Medical C enter Outpatient 06/26/2018 [facility] 12:00:00 AM EDT Medical C enter Outpatient 06/23/2018 [facility] 12:31:00 PM EDT Medical C enter Outpatient 06/23/2018 [facility] 12:00:00 AM EDT Medical C enter Outpatient Attender: Renea Hudson 06/17/2018 [facility] VelezAdmitter: 11:02:00 AM EDT Medic al Center Renea BlackReferrer: Renea Black OutpatientOFFICE/OU Attender: [facility] 06/17/2018 NEXTGEN ([facility], EST [facility] Center 11:02:00 AM EDT - [facility] 06/17/2018 Center) 11:02:00 AM EDT 06/17/2018 [facility] 12:00:00 AM EDT Medical C enter Attender: [facility] 06/17/2017 NEXTGE N ([facility] 10:04:00 AM EDT - [facility] 06/17/2017 Center) 10:04:00 AM EDT 06/17/2017 [facility] 12:00:00 AM EDT Medical C enter Immunizations Vaccine Date Status Description Data Source(s) Tdap 06/17/2017 12:00:00 AM completed Tdap NEXTG EN ([facility] EDT Center) Source: New Immunization Record New in 2011. 06/17/2017 12:00:00 completed Influenza, Injectable , NEXTGEN ([facility] IIV4 AM EDT Quadrivalent, [facility] Pres[facility]) Note: pt refused ; Source: New Immunizat ion Record Medications Medication Brand Start Product Dose Route Administrative [facility] Indications Reaction Description Data Name Date Form Instructions Instructions Source(s) Chantix {06/17/ active Chantix NEXTG EN Starting (2018 Starting ([facility] t Box icline 12:00: Month OCTAVIO J osephs 0.5 mg 0.5 MG 00 AM Medical (11)-1 mg Oral EDT Center) (42) Tablet tablets in ) / 42 dose pack (varen icline 1 MG Oral Tablet ) } Pack Chantix {06/17/ complet Chantix NEXT GEN Starting (2017 ed Starting ([facility] Box icline 12:00: Month OCTAVIO J osephs 0.5 mg 0.5 MG 00 AM Medical (11)-1 mg Oral EDT [place]) (42) Tablet tablets in ) / 42 dose pack (varen icline 1 MG Oral Tablet ) } Pack Insurance Providers Payer name Policy type Policy ID Covered Covered libertarian's Policy P pato / Coverage libertarian ID relationship to [employer] Inf ormation type collazo [facility] O [id number] 01 [id number] ESSENTIALS-CO MMERCIAL O [facility] O [id number] 01 [id number] ESSENTIALS-CO MMERCIAL COUNT INCLUDES THE [facility] MEDICAID [id number] SP [id number] COMM PLAN SELF PAY SP INSURANCE Problems, Conditions, and Diagnoses Code Display Name Description Problem Type Effective Data Sour ce(s) Dates [id number] Angina pectoris Angina pectoris Problem NEXT GEN ([facility]) F43.20 Adjustment ADJUSTMENT Diagnosis 10/14/2018 [facility] [place] disorder, DISORDER, 02:48:00 PM Medical [place] blue unspecified UNSPECIFIED EDT R45.851 Suicidal SUICIDAL Diagnosis 10/14/2018 [facility] [place] ideations IDEATIONS 02:48:00 PM Medical [place] blue EDT Z68.28 Body mass index BODY MASS INDEX Diagnosis 06/17/2018 [facility] [place] (BMI) 28.0-28.9, (BMI) 28.0-28.9, 11:02:00 AM [facility] adult ADULT EDT Z71.89 Other specified OTHER SPECIFIED Diagnosis 06/17/2018 [facility] [place] counseling COUNSELING 11:02:00 AM Medical Cente r EDT Z71.3 Dietary DIETARY Diagnosis 06/17/2018 [facility] [place] counseling and COUNSELING AND 11:02:00 AM [facility] surveillance SURVEILLANCE EDT Z13.9 Encounter for ENCOUNTER FOR Diagnosis 06/17/2018 [facility] [place] [place] screening, SCREENING, 11:02:00 AM Medical Cente r unspecified UNSPECIFIED EDT Z71.6 Tobacco abuse TOBACCO ABUSE Diagnosis 06/17/2018 [facility] [place] counseling COUNSELING 11:02:00 AM Medical Cente r EDT I10 Essential ESSENTIAL Diagnosis 06/17/2018 [place] (primary) (PRIMARY) 11:02:00 AM Medical Yue r hypertension HYPERTENSION EDT Surgeries/Procedures Procedure Description Date Indications Data Source(s) OFFICE/OUTPATIENT 06/17/2018 CHARITY ([place] [place] VISIT, EST 12:00:00 AM EDT - Medical Ce nter) 06/17/2018 12:00:00 AM EDT Results ID Date Data Source Urinalysis.[id number] 10/14/2018 05:02:00 PM EDT [facility] 0 Name Value Range Interpretation Description Data Sup porting Code Source(s) Document(s ) Color of Urine YELLOW <content [facility] styleCode="[facility] [place] d">Color, Medical Urine Center </content>YELL OW <content styleCode="Aditi lics"> (YELLOW )</content> UNK CLEAR <content [facility] styleCode="[facility] [place] d">Urine Medical Clarity Center </content>LYUDMILA R <content styleCode="Aditi lics"> (CLEAR )</content> Glucose NEGATIVE <content [facility] [Mass/volume] styleCode="[facility] [place] in Urine by d">Urine Medical Test strip Glucose Center </content>NEGA TIVE MG/DL<content styleCode="Aditi lics"> (NEGATIVE MG/DL)</conten t> Ketones NEGATIVE <content [facility] [Mass/volume] styleCode="[facility] [place] in Urine by d">Urine Medical Test strip Ketone Center </content>NEGA TIVE MG/DL<content styleCode="Aditi lics"> (NEGATIVE MG/DL)</conten t> Hemoglobin NEGATIVE <content [facility] [Presence] in styleCode="[facility] [place] Urine by Test d">Urine Blood Medical strip </content>NEGA Center TIVE <content styleCode="Aditi lics"> (NEGATIVE )</content> UNK NEGATIVE <content [facility] styleCode="[facility] [place] d">Urine Medical Bilirubin Center </content>NEGA TIVE <content styleCode="Aditi lics"> (NEGATIVE )</content> Specific 1.015-1.02 <content [facility] gravity of 5 styleCode="[facility] [place] Urine by Test d">Urine Medical strip Specific Center [place] </content>1.02 0 <content styleCode="Aditi lics"> (1.015-1.025 )</content> pH of Urine by 4.5-8.0 <content [facility] Test strip styleCode="[facility] [place]ie[place] d">Urine pH Medical </content>6.5 Center <content styleCode="Aditi lics"> (4.5-8.0 )</content> Urobilinogen 0.2-1.0 <content [facility] [Units/volume] styleCode="[place] in Urine by d">Urine Medical Test strip Urobilinogen Center </content>0.2 MG/DL<content styleCode="Aditi lics"> (0.2-1.0 MG/DL)</conten t> Nitrite NEGATIVE <content [facility] [Presence] in styleCode="[facility] [place] Urine by Test d">Urine Medical strip Nitrite Center </content>NEGA TIVE <content styleCode="Aditi lics"> (NEGATIVE )</content> Protein NEGATIVE <content [facility] [Mass/volume] styleCode="[facility] [place] in Urine by d">Urine Medical Test strip Protein Center </content>NEGA TIVE MG/DL<content styleCode="Aditi lics"> (NEGATIVE MG/DL)</conten t> Leukocyte NEGATIVE <content [facility] esterase styleCode="[facility] [place] [Presence] in d">Urine Medical Urine by Test Leukocyte Center strip </content>NEGA TIVE <content styleCode="Aditi lics"> (NEGATIVE )</content> ID Date Data Source Liver 10/14/2018 05:02:00 PM EDT [facility] Profile.[id number] Name Value Range Interpretation Description Data Sup porting Code Source(s) Document(s ) Alanine 7-50 <content [facility] aminotransferase styleCode="Bold"> Vin hs [Enzymatic Alanine Medical activity/volume] Aminotransferase Center in Serum or Plasma (ALT) </content>32 IU/L<content styleCode="Italic s"> (7-50 IU/L)</content> Aspartate 17-59 <content [facility] aminotransferase styleCode="Bold"> Vin hs [Enzymatic Aspartate Medical activity/volume] Aminotransferase Center in Serum or Plasma (AST) </content>24 IU/L<content styleCode="Italic s"> (17-59 IU/L)</content> UNK 0.0-0.3 <content [facility] styleCode="Bold"> [place] Bilirubin, Direct Medical </content>< 0.2 Center MG/DL<content styleCode="Italic s"> (0.0-0.3 MG/DL)</content> Bilirubin.total 0.2-1.3 <content [facility] [Mass/volume] in styleCode="Bold"> Vin hs Serum or Plasma Bilirubin Total Medical </content>0.6 Center MG/DL<content styleCode="Italic s"> (0.2-1.3 MG/DL)</content> Albumin 3.5-5.0 <content [facility] [Mass/volume] in styleCode="Bold"> Vin hs Serum or Plasma Albumin Medical </content>3.9 Center G/DL<content styleCode="Italic s"> (3.5-5.0 G/DL)</content> Alkaline 38-126 <content [facility] phosphatase styleCode="Bold"> [place] [Enzymatic Alkaline Medical activity/volume] Phosphatase (ALP) Cente r in Serum or Plasma </content>88 IU/L<content styleCode="Italic s"> (38-126 IU/L)</content> ID Date Data Source LIPID.[id number] 10/14/2018 05:02:00 PM EDT [facility] Name Value Range Interpretation Description Data Sup porting Code Source(s) Document(s ) UNK > 60 Below low normal <content [facility] styleCode="[place]ie[place] d">HDL- Medical Cholesterol Center </content>38 MG/DL L<content styleCode="Aditi lics"> (> 60 MG/DL)</conten t> UNK < 100 Above high normal <content [facility] styleCode="[place] d">LDL-Cholest Medical bhavani Center </content>126 MG/DL H<content styleCode="Aditi lics"> (< 100 MG/DL)</conten t> Cholesterol -<200 <content [facility] [Mass/volume] in styleCode="[facility] Serum or Plasma d">Cholesterol Medical </content>179 Center MG/DL<content styleCode="Aditi lics"> (-<200 MG/DL)</conten t> Triglyceride < 150 <content [facility] [Mass/volume] in styleCode="[facility] Serum or Plasma d">Triglycerid Medical es Center </content>75 MG/DL<content styleCode="Aditi lics"> (< 150 MG/DL)</conten t> ID Date Data Source HematologyRou.[id number] 10/14/2018 05:02:00 PM EDT [facility] 0400 Name Value Range Interpretation Description Data Sup porting Code Source(s) Document(s ) Hemoglobin 13.5-17. <content [facility] [Mass/volume] in 5 styleCode="Bold [place] Blood ">Hemoglobin Medical </content>16.0 Center G/DL<content styleCode="Ital ics"> (13.5-17.5 G/DL)</content> Hematocrit 41.0-53. <content [facility] [Volume 0 styleCode="Bold [place] Fraction] of ">Hematocrit Medical Blood by </content>46.0 Center Automated count %<content styleCode="Ital ics"> (41.0-53.0 %)</content> Erythrocytes 4.4-5.9 <content [facility] [#/volume] in styleCode="Bold [place] Blood by ">Red Blood Medical Automated count Cell Count Center </content>4.95 MCUMM<content styleCode="Ital ics"> (4.4-5.9 MCUMM)</content > Erythrocyte mean 80.0-100 <content [facility] corpuscular .0 styleCode="Bold [place]ie[place] volume [Entitic ">Mean Medical volume] by Corpuscular Center Automated count Volume </content>92.9 FL<content styleCode="Ital ics"> (80.0-100.0 FL)</content> Leukocytes 4.4-11.0 <content [facility] [#/volume] in styleCode="Bold [place] Blood by ">White Blood Medical Automated count Cell Count Center </content>9.87 KCUMM<content styleCode="Ital ics"> (4.4-11.0 KCUMM)</content > Erythrocyte 11.5-14. <content [facility] distribution 5 styleCode="Bold [place]ie[place] width [Ratio] by ">Red Cell Medical Automated count Distribution Center Width </content>12.6 %<content styleCode="Ital ics"> (11.5-14.5 %)</content> Platelet mean 8.0-11.0 <content [facility] volume [Entitic styleCode="Bold Nie[place] volume] in Blood ">Mean Platelet Medical by Automated Volume Center count </content>10.2 FL<content styleCode="Ital ics"> (8.0-11.0 FL)</content> Platelets 130-400 <content [facility] [#/volume] in styleCode="Bold [place] Blood by ">Platelet Medical Automated count Count Center </content>278 KCUMM<content styleCode="Ital ics"> (130-400 KCUMM)</content > Erythrocyte mean 26.0-34. <content [facility] corpuscular 0 styleCode="Bold [place] hemoglobin ">Mean Medical [Entitic mass] Corposcular Center by Automated Hemoglobin count </content>32.3 PG<content styleCode="Ital ics"> (26.0-34.0 PG)</content> Erythrocyte mean 32.0-37. <content [facility] corpuscular 0 styleCode="Bold [place] hemoglobin ">Mean Corpus. Medical concentration Hgb Center [Mass/volume] by Concentration Automated count (MCHC) </content>34.8 G/DL<content styleCode="Ital ics"> (32.0-37.0 G/DL)</content> UNK 0.0 <content [facility] styleCode="Bold Nie[place] ">Nucleated Red Medical Blood Cell Center Count </content>0.00 KCUMM<content styleCode="Ital ics"> (0.0 KCUMM)</content > UNK 0 <content [facility] styleCode="Bold Nie[place] ">Nucleated Red Medical Blood Cell Center </content>0.0 /100<content styleCode="Ital ics"> (0 /100)</content> ID Date Data Source GFR(Creatinine).[id number] 10/14/2018 05:02:00 PM EDT [facility] 0-0400 Name Value Range Interpretation Code Description Data Katiana rce(s) Supporting Document(s ) UNK > 60 <content [facility] styleCode="Bold"> Medical Cent er EGFR </content>90 GFR<content styleCode="Italic s"> (> 60 GFR)</content> ID Date Data Source CHMROUTINECCDA.[id number] 10/14/2018 05:02:00 PM EDT [facility] -0400 Name Value Range Interpretation Description Data Sup porting Code Source(s) Document(s ) UNK 4.2-5.8 <content [facility] styleCode="[facility] [place] d">Hemoglobin Medical A1C Center </content>5.6 %<content styleCode="Aditi lics"> (4.2-5.8 %)</content> Cannabinoids <content [facility] [Presence] in styleCode="Allen [facility] Urine by Screen d">Cannabinoid Medical method >50 s Center ng/mL </content>PRES UMPTIVE POSITIVE NG/ML (Reference Range: not available)<br/ > ID Date Data Source BMP.[id number] 10/14/2018 05:02:00 PM EDT [facility] Name Value Range Interpretation Description Data Sup porting Code Source(s) Document(s ) Chloride 98-107 <content [facility] [Moles/volume] in styleCode="Bold"> Janes phs Serum or Plasma Chloride Medical </content>104 Center MEQ/L<content styleCode="Italic s"> (98-107 MEQ/L)</content> Potassium 3.5-5.3 <content [facility] [Moles/volume] in styleCode="Bold"> Janes phs Serum or Plasma Potassium Medical </content>4.5 Center MEQ/L<content styleCode="Italic s"> (3.5-5.3 MEQ/L)</content> Sodium 137-145 <content [facility] [Moles/volume] in styleCode="Bold"> [facility] Serum or Plasma Sodium Medical </content>142 Center MEQ/L<content styleCode="Italic s"> (137-145 MEQ/L)</content> UNK > 60 <content [facility] styleCode="Bold"> [place] EGFR </content>90 Medical GFR<content Center styleCode="Italic s"> (> 60 GFR)</content> Calcium 8.4-10. <content [facility] [Mass/volume] in 2 styleCode="Bold"> Vin hs Serum or Plasma Calcium Medical </content>9.6 Center MG/DL<content styleCode="Italic s"> (8.4-10.2 MG/DL)</content> UNK 9-20 <content [facility] styleCode="Bold"> [place] BUN </content>14 Medical MG/DL<content Center styleCode="Italic s"> (9-20 MG/DL)</content> Carbon dioxide, 22-30 <content [facility] total styleCode="Bold"> [place] [Moles/volume] in Carbon Dioxide Medical Serum or Plasma </content>28 Center MEQ/L<content styleCode="Italic s"> (22-30 MEQ/L)</content> Glucose 74-106 <content [facility] [Mass/volume] in styleCode="Bold"> Vin hs Serum or Plasma Glucose Medical </content>95 Center MG/DL<content styleCode="Italic s"> (74-106 MG/DL)</content> Creatinine 0.5-1.3 <content [facility] [Mass/volume] in styleCode="Bold"> Vin hs Serum or Plasma Creatinine Medical </content>1.0 Center MG/DL<content styleCode="Italic s"> (0.5-1.3 MG/DL)</content> Albumin 3.5-5.0 <content [facility] [Mass/volume] in styleCode="Bold"> Vin hs Serum or Plasma Albumin Medical </content>3.9 Center G/DL<content styleCode="Italic s"> (3.5-5.0 G/DL)</content> Alkaline 38-126 <content [facility] phosphatase styleCode="Bold"> [facility] [Enzymatic Alkaline Medical activity/volume] Phosphatase (ALP) Cente r in Serum or Plasma </content>88 IU/L<content styleCode="Italic s"> (38-126 IU/L)</content> Alanine 7-50 <content [facility] aminotransferase styleCode="Bold"> Vin hs [Enzymatic Alanine Medical activity/volume] Aminotransferase Center in Serum or Plasma (ALT) </content>32 IU/L<content styleCode="Italic s"> (7-50 IU/L)</content> Bilirubin.total 0.2-1.3 <content [facility] [Mass/volume] in styleCode="Bold"> Vin hs Serum or Plasma Bilirubin Total Medical </content>0.6 Center MG/DL<content styleCode="Italic s"> (0.2-1.3 MG/DL)</content> Aspartate 17-59 <content [facility] aminotransferase styleCode="Bold"> Vin hs [Enzymatic Aspartate Medical activity/volume] Aminotransferase Center in Serum or Plasma (AST) </content>24 IU/L<content styleCode="Italic s"> (17-59 IU/L)</content> ID Date Data Source Liver 06/17/2018 12:30:00 PM EDT [facility] Profile.[id number] Name Value Range Interpretation Description Data Sup porting Code Source(s) Document(s ) Alanine 7-50 <content [facility] aminotransferase styleCode="Bold"> Vin hs [Enzymatic Alanine Medical activity/volume] Aminotransferase Center in Serum or Plasma (ALT) </content>20 IU/L<content styleCode="Italic s"> (7-50 IU/L)</content> Alkaline 38-126 <content [facility] phosphatase styleCode="Bold"> [place] [Enzymatic Alkaline Medical activity/volume] Phosphatase (ALP) Cente r in Serum or Plasma </content>91 IU/L<content styleCode="Italic s"> (38-126 IU/L)</content> Bilirubin.total 0.2-1.3 <content [facility] [Mass/volume] in styleCode="Bold"> Vin hs Serum or Plasma Bilirubin Total Medical </content>0.6 Center MG/DL<content styleCode="Italic s"> (0.2-1.3 MG/DL)</content> Aspartate 17-59 <content [facility] aminotransferase styleCode="Bold"> Vin hs [Enzymatic Aspartate Medical activity/volume] Aminotransferase Center in Serum or Plasma (AST) </content>23 IU/L<content styleCode="Italic s"> (17-59 IU/L)</content> Albumin 3.5-5.0 <content [facility] [Mass/volume] in styleCode="Bold"> Vin hs Serum or Plasma Albumin Medical </content>4.4 Center G/DL<content styleCode="Italic s"> (3.5-5.0 G/DL)</content> ID Date Data Source LIPID.[id number] 06/17/2018 12:30:00 PM EDT [facility] Name Value Range Interpretation Description Data Sup porting Code Source(s) Document(s ) Cholesterol -<200 <content [facility] [Mass/volume] in styleCode="[facility] [place] Serum or Plasma d">Cholesterol Medical </content>171 Center MG/DL<content styleCode="Aditi lics"> (-<200 MG/DL)</conten t> Triglyceride < 150 <content [facility] [Mass/volume] in styleCode="[facility] [place] Serum or Plasma d">Triglycerid Medical Center </content>62 MG/DL<content styleCode="Aditi lics"> (< 150 MG/DL)</conten t> UNK > 60 Below low normal <content Saint styleCode="[place]ie[place] d">HDL- Medical Cholesterol Center </content>42 MG/DL L<content styleCode="Aditi lics"> (> 60 MG/DL)</conten t> UNK < 100 Above high normal <content [facility] styleCode="[place]ie[place] d">LDL-Cholest Medical bhavani Center </content>117 MG/DL H<content styleCode="Aditi lics"> (< 100 MG/DL)</conten t> ID Date Data Source Hormones.[id number] 06/17/2018 12:30:00 PM EDT [facility] Name Value Range Interpretation Description Data Sup porting Code Source(s) Document(s ) Thyroxine (T4) 0.78-2.1 <content [facility] free 9 styleCode="Allen [place]ie[place] [Mass/volume] d">T4 Free Medical in Serum or </content>1.03 Center Plasma NG/DL<content styleCode="Aditi lics"> (0.78-2.19 NG/DL)</conten t> Thyrotropin 0.465-4. <content [facility] [Units/volume] 68 styleCode="Allen [place] in Serum or d">Thyroid Medical Plasma by Stimulating Center Detection Hormone limit <= 0.05 </content>0.50 mIU/L 2 MIU/L<content styleCode="Aditi lics"> (0.465-4.68 MIU/L)</conten t> ID Date Data Source HematologyRou.[id number] 06/17/2018 12:30:00 PM EDT [facility] 0400 Name Value Range Interpretation Description Data Sup porting Code Source(s) Document(s ) Erythrocytes 4.4-5.9 <content [facility] [#/volume] in styleCode="Bold [place] Blood by ">Red Blood Medical Automated count Cell Count Center </content>5.14 MCUMM<content styleCode="Ital ics"> (4.4-5.9 MCUMM)</content > Hemoglobin 13.5-17. <content [facility] [Mass/volume] in 5 styleCode="Bold Nie[place] Blood ">Hemoglobin Medical </content>16.0 Center G/DL<content styleCode="Ital ics"> (13.5-17.5 G/DL)</content> Leukocytes 4.4-11.0 <content [facility] [#/volume] in styleCode="Bold [place] Blood by ">White Blood Medical Automated count Cell Count Center </content>10.37 KCUMM<content styleCode="Ital ics"> (4.4-11.0 KCUMM)</content > Erythrocyte mean 80.0-100 <content [facility] corpuscular .0 styleCode="Bold [place] volume [Entitic ">Mean Medical volume] by Corpuscular Center Automated count Volume </content>92.8 FL<content styleCode="Ital ics"> (80.0-100.0 FL)</content> Erythrocyte mean 32.0-37. <content [facility] corpuscular 0 styleCode="Bold Niecy hemoglobin ">Mean Corpus. Medical concentration Hgb Center [Mass/volume] by Concentration Automated count (MCHC) </content>33.5 G/DL<content styleCode="Ital ics"> (32.0-37.0 G/DL)</content> Hematocrit 41.0-53. <content [facility] [Volume 0 styleCode="Bold Niecy Fraction] of ">Hematocrit Medical Blood by </content>47.7 Center Automated count %<content styleCode="Ital ics"> (41.0-53.0 %)</content> Erythrocyte 11.5-14. <content [facility] distribution 5 styleCode="Bold Niecy width [Ratio] by ">Red Cell Medical Automated count Distribution Center Width </content>12.1 %<content styleCode="Ital ics"> (11.5-14.5 %)</content> Erythrocyte mean 26.0-34. <content [facility] corpuscular 0 styleCode="Bold [place]ie[place] hemoglobin ">Mean Medical [Entitic mass] Corposcular Center by Automated Hemoglobin count </content>31.1 PG<content styleCode="Ital ics"> (26.0-34.0 PG)</content> UNK 1.6-7.3 <content [facility] styleCode="Bold Niecy ">Neutrophil Medical Count Center </content>5.52 KCUMM<content styleCode="Ital ics"> (1.6-7.3 KCUMM)</content > Neutrophils 36-66 <content [facility] [#/volume] in styleCode="Bold Niecy Blood by ">Neutrophil Medical Automated count </content>53.3 Center %<content styleCode="Ital ics"> (36-66 %)</content> Platelet mean 8.0-11.0 Above high <content [facility] volume [Entitic normal styleCode="Bold Niecy volume] in Blood ">Mean Platelet Medical by Automated Volume Center count </content>11.5 FL H<content styleCode="Ital ics"> (8.0-11.0 FL)</content> Lymphocytes 24.0-44. <content [facility] [#/volume] in 0 styleCode="Bold Nie[place] Blood by ">Lymphocyte Medical Automated count </content>36.9 Center %<content styleCode="Ital ics"> (24.0-44.0 %)</content> Platelets 130-400 <content [facility] [#/volume] in styleCode="Bold [place] Blood by ">Platelet Medical Automated count Count Center </content>314 KCUMM<content styleCode="Ital ics"> (130-400 KCUMM)</content > UNK 0.2-0.9 <content [facility] styleCode="Bold Niecy ">Monocyte Medical Count Center </content>0.71 KCUMM<content styleCode="Ital ics"> (0.2-0.9 KCUMM)</content > Eosinophils 0-5.0 <content [facility] [#/volume] in styleCode="Bold [place]ie[place] Blood by ">Eosinophil Medical Automated count </content>2.0 Center %<content styleCode="Ital ics"> (0-5.0 %)</content> Monocytes 3.0-10.0 <content [facility] [#/volume] in styleCode="Bold [place] Blood by ">Monocyte Medical Automated count </content>6.8 Center %<content styleCode="Ital ics"> (3.0-10.0 %)</content> UNK 1.0-4.8 <content [facility] styleCode="Bold Niecy ">Lymphocyte Medical Count Center </content>3.83 KCUMM<content styleCode="Ital ics"> (1.0-4.8 KCUMM)</content > UNK 0.0-0.3 <content [facility] styleCode="Bold Niecy ">Basophil Medical Count Center </content>0.07 KCUMM<content styleCode="Ital ics"> (0.0-0.3 KCUMM)</content > UNK 0.0 <content [facility] styleCode="Bold Niecy ">Nucleated Red Medical Blood Cell Center Count </content>0.00 KCUMM<content styleCode="Ital ics"> (0.0 KCUMM)</content > Basophils 0.0-1.0 <content [facility] [#/volume] in styleCode="Bold [place] Blood by ">Basophil Medical Automated count </content>0.7 Center %<content styleCode="Ital ics"> (0.0-1.0 %)</content> UNK 0 <content [facility] styleCode="Bold Niecy ">Nucleated Red Medical Blood Cell Center </content>0.0 /100<content styleCode="Ital ics"> (0 /100)</content> UNK 0.0-0.6 <content [facility] styleCode="Bold Nie[place] ">Eosinophil Medical Count Center </content>0.21 KCUMM<content styleCode="Ital ics"> (0.0-0.6 KCUMM)</content > UNK 0-0.1 <content [facility] styleCode="Bold Niecy ">Immature Medical Granulocyte Center Count </content>0.03 KCUMM<content styleCode="Ital ics"> (0-0.1 KCUMM)</content > UNK < 1 <content [facility] styleCode="Bold Niecy ">Immature Medical Granulocyte Center Ratio </content>0.3 %<content styleCode="Ital ics"> (< 1 %)</content> ID Date Data Source GFR(Creatinine).[id number] 06/17/2018 12:30:00 [facility] Name Value Range Interpretation Code Description Data Katiana rce(s) Supporting Document(s ) UNK > 60 <content [facility] styleCode="Bold"> Medical Cent er EGFR </content>101 GFR<content styleCode="Italic s"> (> 60 GFR)</content> ID Date Data Source CHMRELISABETHINECCDA.[id number] 06/17/2018 12:30:00 PM [facility] Name Value Range Interpretation Description Data Sup porting Code Source(s) Document(s ) UNK 2.3-3.5 <content [facility] styleCode="Bold Medical ">Globulin Center </content>3.0 G/DL<content styleCode="Ital ics"> (2.3-3.5 G/DL)</content> UNK >= 1.0 <content [facility] styleCode="Bold Medical ">AG Ratio Center </content>1.5 <content styleCode="Ital ics"> (>= 1.0 )</content> Protein 6.3-8.2 <content [facility] [Mass/volum styleCode="Bold Medical e] in Serum ">Total Protein Center or Plasma </content>7.4 G/DL<content styleCode="Ital ics"> (6.3-8.2 G/DL)</content> UNK 4.2-5.8 <content [facility] styleCode="Bold Medical ">Hemoglobin Center A1C </content>5.5 %<content styleCode="Ital ics"> (4.2-5.8 %)</content> ID Date Data Source [facility].[id number] 06/17/2018 12:30:00 PM EDT [facility] Name Value Range Interpretation Description Data Sup porting Code Source(s) Document(s ) Chloride 98-107 <content [facility] [Moles/volume] in styleCode="Bold"> Janes phs Serum or Plasma Chloride Medical </content>100 Center MEQ/L<content styleCode="Italic s"> (98-107 MEQ/L)</content> UNK 9-20 <content [facility] styleCode="Bold"> [place]ie[place] BUN </content>13 Medical MG/DL<content Center styleCode="Italic s"> (9-20 MG/DL)</content> Potassium 3.5-5.3 <content [facility] [Moles/volume] in styleCode="Bold"> Janes phs Serum or Plasma Potassium Medical </content>4.2 Center MEQ/L<content styleCode="Italic s"> (3.5-5.3 MEQ/L)</content> Carbon dioxide, 22-30 Above high <content [facility] total normal styleCode="Bold"> [place] [Moles/volume] in Carbon Dioxide Medical Serum or Plasma </content>32 Center MEQ/L H<content styleCode="Italic s"> (22-30 MEQ/L)</content> Sodium 137-145 <content [facility] [Moles/volume] in styleCode="Bold"> [facility] Serum or Plasma Sodium Medical </content>141 Center MEQ/L<content styleCode="Italic s"> (137-145 MEQ/L)</content> UNK > 60 <content [facility] styleCode="Bold"> [place] EGFR Medical </content>101 Center GFR<content styleCode="Italic s"> (> 60 GFR)</content> Aspartate 17-59 <content [facility] aminotransferase styleCode="Bold"> Vin hs [Enzymatic Aspartate Medical activity/volume] Aminotransferase Center in Serum or Plasma (AST) </content>23 IU/L<content styleCode="Italic s"> (17-59 IU/L)</content> Creatinine 0.5-1.3 <content [facility] [Mass/volume] in styleCode="Bold"> Vin hs Serum or Plasma Creatinine Medical </content>0.9 Center MG/DL<content styleCode="Italic s"> (0.5-1.3 MG/DL)</content> Calcium 8.4-10. <content [facility] [Mass/volume] in 2 styleCode="Bold"> Vin hs Serum or Plasma Calcium Medical </content>9.8 Center MG/DL<content styleCode="Italic s"> (8.4-10.2 MG/DL)</content> Glucose 74-106 <content [facility] [Mass/volume] in styleCode="Bold"> Vin hs Serum or Plasma Glucose Medical </content>96 Center MG/DL<content styleCode="Italic s"> (74-106 MG/DL)</content> Bilirubin.total 0.2-1.3 <content [facility] [Mass/volume] in styleCode="Bold"> Vin hs Serum or Plasma Bilirubin Total Medical </content>0.6 Center MG/DL<content styleCode="Italic s"> (0.2-1.3 MG/DL)</content> Alanine 7-50 <content [facility] aminotransferase styleCode="Bold"> Vin hs [Enzymatic Alanine Medical activity/volume] Aminotransferase Center in Serum or Plasma (ALT) </content>20 IU/L<content styleCode="Italic s"> (7-50 IU/L)</content> Alkaline 38-126 <content [facility] phosphatase styleCode="Bold"> [facility] [Enzymatic Alkaline Medical activity/volume] Phosphatase (ALP) Cente r in Serum or Plasma </content>91 IU/L<content styleCode="Italic s"> (38-126 IU/L)</content> Albumin 3.5-5.0 <content [facility] [Mass/volume] in styleCode="Bold"> Vin hs Serum or Plasma Albumin Medical </content>4.4 Center G/DL<content styleCode="Italic s"> (3.5-5.0 G/DL)</content> ID Date Data Source Liver Profile 06/17/2018 12:30:00 PM EDT [facility] Name Value Range Interpretation Description Data Sup porting Code Source(s) Document(s ) Aspartate 17-59 <content [facility] aminotransferase styleCode="Bold"> Vin hs [Enzymatic Aspartate Medical activity/volume] Aminotransferase Center in Serum or Plasma (AST) </content>23 IU/L<content styleCode="Italic s"> (17-59 IU/L)</content> Bilirubin.total 0.2-1.3 <content [facility] [Mass/volume] in styleCode="Bold"> Vin hs Serum or Plasma Bilirubin Total Medical </content>0.6 Center MG/DL<content styleCode="Italic s"> (0.2-1.3 MG/DL)</content> Albumin 3.5-5.0 <content [facility] [Mass/volume] in styleCode="Bold"> Vin hs Serum or Plasma Albumin Medical </content>4.4 Center G/DL<content styleCode="Italic s"> (3.5-5.0 G/DL)</content> Alanine 7-50 <content [facility] aminotransferase styleCode="Bold"> Vin hs [Enzymatic Alanine Medical activity/volume] Aminotransferase Center in Serum or Plasma (ALT) </content>20 IU/L<content styleCode="Italic s"> (7-50 IU/L)</content> Alkaline 38-126 <content [facility] phosphatase styleCode="Bold"> [place] [Enzymatic Alkaline Medical activity/volume] Phosphatase (ALP) Cente r in Serum or Plasma </content>91 IU/L<content styleCode="Italic s"> (38-126 IU/L)</content> ID Date Data Source LIPID 06/17/2018 12:30:00 PM EDT [facility] Name Value Range Interpretation Description Data Sup porting Code Source(s) Document(s ) UNK < 100 Above high normal <content Saint styleCode="Allen Niecy d">LDL-Cholest [facility] </content>117 MG/DL H<content styleCode="Aditi lics"> (< 100 MG/DL)</conten t> Cholesterol -<200 <content [facility] [Mass/volume] in styleCode="Allen Dorseys Serum or Plasma d">Cholesterol Medical </content>171 Center MG/DL<content styleCode="Aditi lics"> (-<200 MG/DL)</conten t> UNK > 60 Below low normal <content Saint styleCode="Allen [place]ie[place] d">HDL- Medical Cholesterol Center </content>42 MG/DL L<content styleCode="Aditi lics"> (> 60 MG/DL)</conten t> Triglyceride < 150 <content [facility] [Mass/volume] in styleCode="Allen Niecy Serum or Plasma d">Triglycerid Medical es Center </content>62 MG/DL<content styleCode="Aditi lics"> (< 150 MG/DL)</conten t> ID Date Data Source Hormones 06/17/2018 12:30:00 PM EDT [facility] Name Value Range Interpretation Description Data Sup porting Code Source(s) Document(s ) Thyroxine (T4) 0.78-2.1 <content [facility] free 9 styleCode="Allen Niecy [Mass/volume] d">T4 Free Medical in Serum or </content>1.03 Center Plasma NG/DL<content styleCode="Aditi lics"> (0.78-2.19 NG/DL)</conten t> Thyrotropin 0.465-4. <content [facility] [Units/volume] 68 styleCode="Allen Niecy in Serum or d">Thyroid Medical Plasma by Stimulating Center Detection Hormone limit <= 0.05 </content>0.50 mIU/L 2 MIU/L<content styleCode="Aditi lics"> (0.465-4.68 MIU/L)</conten t> ID Date Data Source HematologyRou 06/17/2018 12:30:00 PM EDT [facility] Name Value Range Interpretation Description Data Sup porting Code Source(s) Document(s ) Hematocrit 41.0-53. <content [facility] [Volume 0 styleCode="Bold Niecy Fraction] of ">Hematocrit Medical Blood by </content>47.7 Center Automated count %<content styleCode="Ital ics"> (41.0-53.0 %)</content> Erythrocytes 4.4-5.9 <content Saint [#/volume] in styleCode="Bold Niecy Blood by ">Red Blood Medical Automated count Cell Count Center </content>5.14 MCUMM<content styleCode="Ital ics"> (4.4-5.9 MCUMM)</content > Hemoglobin 13.5-17. <content [facility] [Mass/volume] in 5 styleCode="Bold Niecy Blood ">Hemoglobin Medical </content>16.0 Center G/DL<content styleCode="Ital ics"> (13.5-17.5 G/DL)</content> Erythrocyte mean 26.0-34. <content [facility] corpuscular 0 styleCode="Bold Niecy hemoglobin ">Mean Medical [Entitic mass] Corposcular Center by Automated Hemoglobin count </content>31.1 PG<content styleCode="Ital ics"> (26.0-34.0 PG)</content> Leukocytes 4.4-11.0 <content [facility] [#/volume] in styleCode="Bold Niecy Blood by ">White Blood Medical Automated count Cell Count Center </content>10.37 KCUMM<content styleCode="Ital ics"> (4.4-11.0 KCUMM)</content > Erythrocyte mean 80.0-100 <content [facility] corpuscular .0 styleCode="Bold Niecy volume [Entitic ">Mean Medical volume] by Corpuscular Center Automated count Volume </content>92.8 FL<content styleCode="Ital ics"> (80.0-100.0 FL)</content> Platelets 130-400 <content [facility] [#/volume] in styleCode="Bold Niecy Blood by ">Platelet Medical Automated count Count Center </content>314 KCUMM<content styleCode="Ital ics"> (130-400 KCUMM)</content > Erythrocyte mean 32.0-37. <content [facility] corpuscular 0 styleCode="Bold Niecy hemoglobin ">Mean Corpus. Medical concentration Hgb Center [Mass/volume] by Concentration Automated count (MCHC) </content>33.5 G/DL<content styleCode="Ital ics"> (32.0-37.0 G/DL)</content> Platelet mean 8.0-11.0 Above high <content [facility] volume [Entitic normal styleCode="Bold Niecy volume] in Blood ">Mean Platelet Medical by Automated Volume Center count </content>11.5 FL H<content styleCode="Ital ics"> (8.0-11.0 FL)</content> Neutrophils 36-66 <content [facility] [#/volume] in styleCode="Bold Niecy Blood by ">Neutrophil Medical Automated count </content>53.3 Center %<content styleCode="Ital ics"> (36-66 %)</content> Erythrocyte 11.5-14. <content [facility] distribution 5 styleCode="Bold Niecy width [Ratio] by ">Red Cell Medical Automated count Distribution Center Width </content>12.1 %<content styleCode="Ital ics"> (11.5-14.5 %)</content> UNK 1.0-4.8 <content [facility] styleCode="Bold Niecy ">Lymphocyte Medical Count Center </content>3.83 KCUMM<content styleCode="Ital ics"> (1.0-4.8 KCUMM)</content > UNK 0.2-0.9 <content [facility] styleCode="Bold Niecy ">Monocyte Medical Count Center </content>0.71 KCUMM<content styleCode="Ital ics"> (0.2-0.9 KCUMM)</content > UNK 1.6-7.3 <content [facility] styleCode="Bold Niecy ">Neutrophil Medical Count Center </content>5.52 KCUMM<content styleCode="Ital ics"> (1.6-7.3 KCUMM)</content > Eosinophils 0-5.0 <content Saint [#/volume] in styleCode="Bold Niecy Blood by ">Eosinophil Medical Automated count </content>2.0 Center %<content styleCode="Ital ics"> (0-5.0 %)</content> Monocytes 3.0-10.0 <content Saint [#/volume] in styleCode="Bold Niecy Blood by ">Monocyte Medical Automated count </content>6.8 Center %<content styleCode="Ital ics"> (3.0-10.0 %)</content> Lymphocytes 24.0-44. <content [facility] [#/volume] in 0 styleCode="Bold Niecy Blood by ">Lymphocyte Medical Automated count </content>36.9 Center %<content styleCode="Ital ics"> (24.0-44.0 %)</content> UNK 0.0-0.6 <content [facility] styleCode="Bold Niecy ">Eosinophil Medical Count Center </content>0.21 KCUMM<content styleCode="Ital ics"> (0.0-0.6 KCUMM)</content > UNK 0.0 <content Saint styleCode="Bold Niecy ">Nucleated Red Medical Blood Cell Center Count </content>0.00 KCUMM<content styleCode="Ital ics"> (0.0 KCUMM)</content > UNK 0 <content Saint styleCode="Bold Niecy ">Nucleated Red Medical Blood Cell Center </content>0.0 /100<content styleCode="Ital ics"> (0 /100)</content> UNK 0.0-0.3 <content Saint styleCode="Bold Niecy ">Basophil Medical Count Center </content>0.07 KCUMM<content styleCode="Ital ics"> (0.0-0.3 KCUMM)</content > Basophils 0.0-1.0 <content [facility] [#/volume] in styleCode="Bold Niecy Blood by ">Basophil Medical Automated count </content>0.7 Center %<content styleCode="Ital ics"> (0.0-1.0 %)</content> UNK 0-0.1 <content [facility] styleCode="Bold Niecy ">Immature Medical Granulocyte Center Count </content>0.03 KCUMM<content styleCode="Ital ics"> (0-0.1 KCUMM)</content > UNK < 1 <content [facility] styleCode="Bold Niecy ">Immature Medical Granulocyte Center Ratio </content>0.3 %<content styleCode="Ital ics"> (< 1 %)</content> ID Date Data Source GFR(Creatinine) 06/17/2018 12:30:00 PM EDT [facility] Name Value Range Interpretation Code Description Data Katiana rce(s) Supporting Document(s ) UNK > 60 <content [facility] styleCode="Bold"> Medical Cent er EGFR </content>101 GFR<content styleCode="Italic s"> (> 60 GFR)</content> ID Date Data Source CHMROUTINECCDA 06/17/2018 12:30:00 PM EDT [facility] Name Value Range Interpretation Description Data Sup porting Code Source(s) Document(s ) UNK >= 1.0 <content [facility] styleCode="Bold Medical ">AG Ratio Center </content>1.5 <content styleCode="Ital ics"> (>= 1.0 )</content> Protein 6.3-8.2 <content [facility] [Mass/volum styleCode="Bold Medical e] in Serum ">Total Protein Center or Plasma </content>7.4 G/DL<content styleCode="Ital ics"> (6.3-8.2 G/DL)</content> UNK 2.3-3.5 <content [facility] styleCode="Bold Medical ">Globulin Center </content>3.0 G/DL<content styleCode="Ital ics"> (2.3-3.5 G/DL)</content> UNK 4.2-5.8 <content [facility] styleCode="Bold Medical ">Hemoglobin Center A1C </content>5.5 %<content styleCode="Ital ics"> (4.2-5.8 %)</content> ID Date Data Source BMP 06/17/2018 12:30:00 PM EDT [facility] Name Value Range Interpretation Description Data Sup porting Code Source(s) Document(s ) Sodium 137-145 <content [facility] [Moles/volume] in styleCode="Bold"> [facility] Serum or Plasma Sodium Medical </content>141 Center MEQ/L<content styleCode="Italic s"> (137-145 MEQ/L)</content> Chloride 98-107 <content [facility] [Moles/volume] in styleCode="Bold"> [facility] Serum or Plasma Chloride Medical </content>100 Center MEQ/L<content styleCode="Italic s"> (98-107 MEQ/L)</content> Carbon dioxide, 22-30 Above high <content [facility] total normal styleCode="Bold"> [place] [Moles/volume] in Carbon Dioxide Medical Serum or Plasma </content>32 Center MEQ/L H<content styleCode="Italic s"> (22-30 MEQ/L)</content> Potassium 3.5-5.3 <content [facility] [Moles/volume] in styleCode="Bold"> Janes phs Serum or Plasma Potassium Medical </content>4.2 Center MEQ/L<content styleCode="Italic s"> (3.5-5.3 MEQ/L)</content> Glucose 74-106 <content [facility] [Mass/volume] in styleCode="Bold"> Vin hs Serum or Plasma Glucose Medical </content>96 Center MG/DL<content styleCode="Italic s"> (74-106 MG/DL)</content> Creatinine 0.5-1.3 <content [facility] [Mass/volume] in styleCode="Bold"> Vin hs Serum or Plasma Creatinine Medical </content>0.9 Center MG/DL<content styleCode="Italic s"> (0.5-1.3 MG/DL)</content> UNK > 60 <content [facility] styleCode="Bold"> [place] EGFR Medical </content>101 Center GFR<content styleCode="Italic s"> (> 60 GFR)</content> Calcium 8.4-10. <content [facility] [Mass/volume] in 2 styleCode="Bold"> Vin hs Serum or Plasma Calcium Medical </content>9.8 Center MG/DL<content styleCode="Italic s"> (8.4-10.2 MG/DL)</content> Aspartate 17-59 <content [facility] aminotransferase styleCode="Bold"> Vin hs [Enzymatic Aspartate Medical activity/volume] Aminotransferase Center in Serum or Plasma (AST) </content>23 IU/L<content styleCode="Italic s"> (17-59 IU/L)</content> UNK 9-20 <content [facility] styleCode="Bold"> [place] BUN </content>13 Medical MG/DL<content Center styleCode="Italic s"> (9-20 MG/DL)</content> Albumin 3.5-5.0 <content [facility] [Mass/volume] in styleCode="Bold"> Vin hs Serum or Plasma Albumin Medical </content>4.4 Center G/DL<content styleCode="Italic s"> (3.5-5.0 G/DL)</content> Alanine 7-50 <content [facility] aminotransferase styleCode="Bold"> Vin hs [Enzymatic Alanine Medical activity/volume] Aminotransferase Center in Serum or Plasma (ALT) </content>20 IU/L<content styleCode="Italic s"> (7-50 IU/L)</content> Bilirubin.total 0.2-1.3 <content [facility] [Mass/volume] in styleCode="Bold"> Vin hs Serum or Plasma Bilirubin Total Medical </content>0.6 Center MG/DL<content styleCode="Italic s"> (0.2-1.3 MG/DL)</content> Alkaline 38-126 <content [facility] phosphatase styleCode="Bold"> [place] [Enzymatic Alkaline Medical activity/volume] Phosphatase (ALP) Cente r in Serum or Plasma </content>91 IU/L<content styleCode="Italic s"> (38-126 IU/L)</content> Procedure Social History Code Duration Value Status Description Data Source(s ) Smoking 10/14/2018 Daily Smoker completed Daily Smoker [facility] 03:35:00 PM Medical Cente r EDT Smoking 10/14/2018 Daily Smoker completed Daily Smoker [facility] 03:15:00 PM Medical Cente r EDT Smoking 10/14/2018 Daily Smoker completed Daily Smoker [facility] 03:07:00 PM Medical Cente r EDT Caffeine Use 06/17/2018 completed NEXTGEN (Srinivasan nt Details 12:00:00 AM [facility]) 06/17/2018 Moderate completed Moderate NEXTGEN ([facility] 12:00:00 AM cigarette smoker cigarette smoker J osep EDT (10-19 cigs/day) (10-19 cigs/day) [facility]) Alcohol Use 06/17/2018 hard liquor 1 completed hard liquor 1 NEXTGEN ([facility] Details 12:00:00 AM pint occasionally pint occasionally [facility]) Smoking 06/17/2018 Heavy tobacco completed Heavy tobacco NEXTGEN ([facility] 12:00:00 AM smoker smoker [facility]) Smoking Unknown if ever completed Unknown if ever Amalia Pemberton smoked smoked Medical Center Vital Signs ID Date Data Source UNK Name Value Range Interpretation Code Description Data Source(s) Body temperature 36.992524 36.219937 [facility] Respiratory rate 17 /min 17 /min [facility] Oxygen saturation 98 % 98 % [facility] Arterial blood [facility] by Pulse oximetry Heart rate 74 /min 74 /min [facility] Diastolic blood 87 mm[Hg] 87 mm[Hg] [facility] pressure [facility] Systolic blood 143 mm[Hg] 143 mm[Hg] [facility] Body temperature 36.984865 36.759742 [facility] Oxygen saturation 98 % 98 % [facility] Arterial blood [facility] by Pulse oximetry Heart rate 74 /min 74 /min [facility] Diastolic blood 94 mm[Hg] 94 mm[Hg] [facility] Systolic blood 154 mm[Hg] 154 mm[Hg] [facility] Body weight 85.012086 kg 85.497379 kg [facility] Body temperature 37.259771 37.553726 [facility] Respiratory rate 17 /min 17 /min [facility] Oxygen saturation 97 % 97 % [facility] by Pulse oximetry Heart rate 82 /min 82 /min [facility] Body height 170.077662 170.413069 cm [facility] Diastolic blood 106 mm[Hg] 106 mm[Hg] [facility] Systolic blood 141 mm[Hg] 141 mm[Hg] [facility] Body mass index 29.6 kg/m2 29.6 kg/m2 [facility] (BMI) [Ratio] Medical Joanne ter Heart rate 68 /min 68 /min [facility] ([facility]) Diastolic blood 98 mm[Hg] 98 mm[Hg] NEXTGEN ( [facility]) Systolic blood 143 mm[Hg] 143 mm[Hg] NEXTGEN ([facility] pressure [facility]) Heart rate 74 /min 74 /min [facility] ([facility]) Diastolic blood 103 mm[Hg] 103 mm[Hg] [facility]EXTGEN ( [facility]) Systolic blood 147 mm[Hg] 147 mm[Hg] NEXTGEN ([facility] pressure [facility]) Oxygen saturation 99 % 99 % NEXTGEN ([facility] in Arterial blood [facility] by Pulse oximetry Center) Body mass index 28.35 kg/m2 Overweight 28.35 kg/m2 [facility] (BMI) [Ratio] [facility]) Respiratory rate 18 /min 18 /min [facility] ([facility]) Body temperature 37.11 [place] 37.11 [place] [facility] Heart rate 81 /min 81 /min [facility] ([facility]) Diastolic blood 103 mm[Hg] 103 mm[Hg] [facility] ( [facility]) Systolic blood 151 mm[Hg] 151 mm[Hg] [facility] ([facility]) Body weight 82.100 kg 82.100 kg [facility] ([facility] [facility] Body height 170.18 cm 170.18 cm [facility] ([facility]) Patient Treatment Plan of Care Planned Activity Planned Date Details Description Data Source (s) Chantix Starting Month 06/17/2018 12:00:00 NEXTGEN ([place] [facility] 0.5 mg (11)-1 mg AM [facility]) (42) tablets in dose pack Chantix Starting Month 06/17/2017 12:00:00 NEXTGEN ([facility] [place] [facility] 0.5 mg (11)-1 mg AM [facility]) (42) tablets in dose pack
--- NOTE | 2019-11-20 12:33 | PDOC ---
History of Present Illness - General Chief Complaint: Sore Throat Stated Complaint: SORE THROAT Time Seen by Provider: 11/20/19 11:48 History Source: Patient Exam Limitations: Clinical Condition - History of Present Illness Initial Comments: 11/20/19 12:30 Patient with no significant past medical history present with complaint of 2-day history of sore throat and painful to swallow. Denies fever, chills, difficulty swallowing, nausea, vomiting, cough, chest pain, headaches. Denies any other symptoms. Patient has not taken anything for symptoms Is this a multiple visit Asthma Patient?: No Timing/Duration: other (2 days) Past History - Medical History Allergies/Adverse Reactions: Allergies Allergy/AdvReac Type Severity Reaction Status Date / Time Penicillins Allergy Verified 11/20/19 11:47 Home Medications: Ambulatory Orders Aspirin [ASA -] 81 mg PO DAILY 04/06/17 Guaifenesin [Mucinex -] 600 mg PO BID 09/10/18 Loratadine [Claritin -] 10 mg PO DAILY 09/10/18 Methylprednisolone [Medrol Dose Bernardino] 4 mg PO ASDIR #21 tablet 11/20/19 Cardiac Disorders: Yes (ANGINA,IRREGULAR HEART BEAT) COPD: No CHF: No - Immunization History Immunization Up to Date: No - Psycho-Social/Smoking History Smoking History: Current every day smoker Have you smoked in the past 12 months: Yes Number of Cigarettes Smoked Daily: 5 If you are a former smoker, when did you quit?: 02/17/2018 Information on smoking cessation initiated: No 'Breaking Loose' booklet given: 04/06/17 - Substance Abuse Hx (Audit-C & DAST Scrn) How often the patient has a drink containing alcohol: 2-4 times / month Score: In Men: 4 or > Positive; In Women: 3 or > Positive: 2 Screen Result (Pos requires Nsg. Audit-10AR): Negative Review of Systems - Review of Systems Able to Perform ROS?: Yes Is the patient limited Yoruba proficient: No Constitutional: No: Chills, Fever, Malaise HEENTM: Yes: Symptoms Reported, See HPI, Throat Pain. No: Eye Pain, Blurred Vision, Tearing, Recent change in vision, Double Vision, Cataracts, Ear Pain, Ocular Prothesis, Ear Discharge, Nose Pain, Nose Congestion, Tinnitus, Nose Bleeding, Hearing Loss, Throat Swelling, Mouth Pain, Dental Problems, Difficulty Swallowing, Mouth Swelling, Other Respiratory: No: Symptoms reported, See HPI, Cough, Orthopnea, Shortness of Breath, SOB with Exertion, SOB at Rest, Stridor, Wheezing, Productive cough, Hemoptysis, Other Cardiac (ROS): No: Symptoms Reported, See HPI, Chest Pain, Edema, Irregular Heart Rate, Lightheadedness, Palpitations, Syncope, Chest Tightness, Other ABD/GI: No: Symptoms Reported, See HPI, Nausea, Vomiting Musculoskeletal: No: Symptoms Reported Integumentary: No: Symptoms Reported, Rash Neurological: No: Symptoms reported, Headache, Dizziness All Other Systems: Reviewed and Negative *Physical Exam - Vital Signs Last Vital Signs Temp Pulse Resp BP Pulse Ox 97 F L 82 18 119/52 L 99 11/20/19 11:43 11/20/19 11:43 11/20/19 11:43 11/20/19 11:43 11/20/19 11:43 - Physical Exam 11/20/19 12:32 GENERAL: Well developed, well nourished. Awake and alert. No acute distress. HEENT: Mild pharyngeal erythema without exudates. Normocephalic, atraumatic. PERRLA, EOMI. No conjunctival pallor. Sclera are non-icteric. Moist mucous membranes. Oropharynx is clear. NECK: Supple. Full ROM. CARDIOVASCULAR: Regular rate and rhythm. No murmurs, rubs, or gallops. PULMONARY: No evidence of respiratory distress. Lungs clear to auscultation bilaterally. No wheezing, rales or rhonchi. ABDOMINAL: Soft. Non-tender. Non-distended. No rebound or guarding. No organomegaly. Normoactive bowel sounds. MUSCULOSKELETAL Normal range of motion at all joints. SKIN: Warm and dry. Normal capillary refill. No rashes. No cyanosis NEUROLOGICAL: Alert, awake, appropriate. Gait is normal without ataxia. PSYCHIATRIC: Cooperative. Good eye contact. Appropriate mood General Appearance: Yes: Nourished, Appropriately Dressed. No: Apparent Distress Medical Decision Making - Medical Decision Making 11/20/19 12:31 Patient with no significant past medical history present with complaint of 2-day history of sore throat and painful to swallow. Denies fever, chills, difficulty swallowing, nausea, vomiting, cough, chest pain, headaches. Denies any other symptoms. Patient has not taken anything for symptoms Exam significant for mild pharyngeal erythema otherwise unremarkable exam. Patient afebrile. Lungs clear to auscultation bilateral. Normal cardio exam. Patient in no acute distress. Symptoms likely viral pharyngitis versus strep. Rapid strep ordered to rule out strep 11/20/19 12:56 Rapid strep negative. Patient symptoms likely viral pharyngitis and stable for discharge on Medrol Bernardino for inflammatory effect with advised to increase fluid intake and ENT follow-up as needed Discharge - Discharge Information Problems reviewed: Yes Clinical Impression/Diagnosis: Sore throat Condition: Stable Disposition: HOME - Admission No - Additional Discharge Information Prescriptions: Methylprednisolone [Medrol Dose Bernardino] 4 mg PO ASDIR #21 tablet - Follow up/Referral Referrals: Alo Clayton MD [Staff Physician] - - Patient Discharge Instructions Patient Printed Discharge Instructions: DI for Pharyngitis/Tonsillopharyngitis -- Adult Additional Instructions: Your strep test is negative. Your symptoms likely caused by viral infection. Take prescribed medication as prescribed for throat pain. Gargle with salt water and increase fluid intake. Follow-up referred ENT if symptoms persist for more than 3 days otherwise follow-up with your primary care - Post Discharge Activity
== END 2019-11-20 12:49 | disposition home or self-care (01) ==
LOC: JERFT 11:42
DX: J02.9 Acute pharyngitis, unspecified (principal)
CPT/HCPCS: 87070; 87880; 99283-25

== ENCOUNTER 2021-06-06 19:58 | Emergency (ER) | payer OTHER ==
[2021-06-06 20:07] VITALS: BP 147/96; PULSE 100; TEMP 98.3; BMI 29.2
== END 2021-06-06 20:50 | disposition home or self-care (01) ==
LOC: JERFT 19:58
DX: L30.9 Dermatitis, unspecified (principal)
CPT/HCPCS: 99281-25

== ENCOUNTER 2022-07-29 15:37 | Emergency (ER) | payer SELFPAY ==
[2022-07-29 15:44] VITALS: BP 127/86; PULSE 87; RESP 18; TEMP 98.1; BMI 29.0
[2022-07-29] MEDS ORDERED: KETOROLAC TROMETHAMINE 30 MG/1 ML VIAL IM ONE (17:58)
[2022-07-29] MEDS ORDERED: KETOROLAC TROMETHAMINE 30 MG/1 ML VIAL ONE (17:58)
== END 2022-07-29 18:07 | disposition home or self-care (01) ==
LOC: JERFT 15:37
DX: M25.521 Pain in right elbow (principal); R22.31 Localized swelling, mass and lump, right upper limb; M70.21 Olecranon bursitis, right elbow; X58.XXXA Exposure to other specified factors, initial encounter
CPT/HCPCS: 73070-TC-RT-FY; 99283-25